=== PATIENT | male | born 1955 | race Caucasian/White ===

== ENCOUNTER 2020-01-02 15:23 | Emergency (ER) | payer SELFPAY ==
[2020-01-02 16:38] LABS: ANION GAP 17.2
--- NOTE | 2020-01-02 16:52 | EDM.PDOC ---
<Dorian Oliveira - Last Filed: 01/02/20 16:47> ED HPI GENERAL MEDICAL PROBLEM - General Chief Complaint: Respiratory Problem Stated Complaint: FEVER/ABNORMAL CHEST XRAY Time Seen by Provider: 01/02/20 16:30 Source of Information: Reports: Patient, RN, RN Notes Reviewed History Limitations: Reports: No Limitations - History of Present Illness INITIAL COMMENTS - FREE TEXT/NARRATIVE: Pt here from [facility]. Pt x-rays indicated pneumonia. Pt afebrile after tylenol being given in the clinic. Patient states he started feeling ill about 3 days ago with shortness of breath, productive cough and generalized weakness. He has had headaches but relieved with tylenol and ibuprofen. Has not had much of an appetite lately but still drinking plenty of fluids. He works 14 hour shifts and is on his feet while at work the whole shift. Pt with 156/104 bp. Pt denies pain at this time and admits to having chills/fever at home. Pt with 47 years smoking history. Onset: Gradual Duration: Day(s): (3 days) Location: Reports: Chest Severity: Moderate Improves with: Reports: None Worsens with: Reports: None Associated Symptoms: Reports: cough w sputum, Diaphoresis, Fever/Chills, Headaches, Loss of Appetite, Nausea/Vomiting, Shortness of Breath, Weakness. 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 [No Known Home Meds] 01/02/20 [History] Past Medical History HEENT History: Reports: None Cardiovascular History: Reports: None Respiratory History: Reports: None Gastrointestinal History: Reports: None Genitourinary History: Reports: None Musculoskeletal History: Reports: None Neurological History: Reports: None Psychiatric History: Reports: None Endocrine/Metabolic History: Reports: None Hematologic History: Reports: None Immunologic History: Reports: None Oncologic (Cancer) History: Reports: None Dermatologic History: Reports: None - Infectious Disease History Infectious Disease History: Reports: Chicken Pox - Past Surgical History Head Surgeries/Procedures: Reports: None HEENT Surgical History: Reports: None GI Surgical History: Reports: None Male Surgical History: Reports: None Endocrine Surgical History: Reports: None Neurological Surgical History: Reports: None Musculoskeletal Surgical History: Reports: None Oncologic Surgical History: Reports: None Social & Family History - Family History Family Medical History: Noncontributory - Tobacco Use Smoking Status *Q: Current Every Day Smoker Years of Tobacco use: 47 Packs/Tins Daily: 1 Used Tobacco, but Quit: No Second Hand Smoke Exposure: No - Caffeine Use Caffeine Use: Reports: Coffee - Recreational Drug Use Recreational Drug Use: No ED ROS GENERAL - Review of Systems Review Of Systems: See Below Constitutional: Reports: Fever, Weakness, Fatigue, Diaphoresis, Decreased Appetite HEENT: Reports: No Symptoms Respiratory: Reports: Shortness of Breath, Cough, Sputum Cardiovascular: Reports: No Symptoms Endocrine: Reports: No Symptoms GI/Abdominal: Reports: Decreased Appetite, Nausea. Denies: Constipation, Diarrhea, Vomiting : Reports: No Symptoms Musculoskeletal: Reports: No Symptoms Skin: Reports: No Symptoms Neurological: Reports: Headache, Weakness. Denies: Dizziness, Syncope Psychiatric: Reports: No Symptoms Hematologic/Lymphatic: Reports: No Symptoms Immunologic: Reports: No Symptoms ED EXAM, GENERAL - Physical Exam Exam: See Below Exam Limited By: No Limitations General Appearance: Alert, WD/WN, No Apparent Distress Head: Atraumatic, Normocephalic Neck: Normal Inspection, Supple, Non-Tender, Full Range of Motion. No: Carotid Bruit Respiratory/Chest: No Respiratory Distress, No Accessory Muscle Use, Chest Non- Tender, Decreased Breath Sounds, Crackles (bilateral) Cardiovascular: Normal Peripheral Pulses, Regular Rate, Rhythm, No Edema, No Gallop, No JVD, No Murmur, No Rub Peripheral Pulses: 2+: Carotid (L), Carotid (R) GI/Abdominal: Normal Bowel Sounds, Soft, Non-Tender, No Organomegaly, No Distention, No Abnormal Bruit, No Mass Extremities: Normal Inspection, Normal Range of Motion, Non-Tender, Normal Capillary Refill, No Pedal Edema Neurological: Alert, Oriented, CN II-XII Intact, Normal Cognition, Normal Gait, Normal Reflexes, No Motor/Sensory Deficits Psychiatric: Normal Affect, Normal Mood Skin Exam: Warm, Dry, Intact, Normal Color, No Rash Lymphatic: No Adenopathy Course - Vital Signs Last Recorded V/S: Last Vital Signs Temp 97.5 F 01/02/20 15:30 Pulse 87 01/02/20 15:30 Resp 18 01/02/20 15:30 BP 156/102 H 01/02/20 15:30 Pulse Ox 100 01/02/20 15:30 - Orders/Labs/Meds Labs: Laboratory Tests 01/02/20 01/02/20 01/02/20 Range/Units 16:09 16:09 16:09 WBC 9.8 (5.0-10.0) 10^3/uL RBC 3.94 L (4.6-6.2) 10^6/uL Hgb 13.0 L (14.0-18.0) g/dL Hct 36.9 L (40.0-54.0) % MCV 93.7 (80-100) fL MCH 33.0 (27.0-34.0) pg MCHC 35.2 H (33.0-35.0) g/dL Plt Count 246 (150-450) 10^3/uL Neut % (Auto) 85.6 H (42.2-75.2) % Lymph % (Auto) 7.5 L (20.5-50.1) % Elliott % (Auto) 6.7 (2-8) % Eos % (Auto) 0.0 L (1.0-3.0) % Baso % (Auto) 0.2 (0.0-1.0) % Sodium 123 L (135-145) mmol/L Potassium 5.2 H (3.6-5.0) mmol/L Chloride 90 L (101-111) mmol/L Carbon Dioxide 21.0 (21.0-31.0) mmol/L Anion Gap 17.2 BUN 21 H (7-18) mg/dL Creatinine 1.3 (0.6-1.3) mg/dL Est Cr Clr Drug Dosing 53.67 mL/min Estimated GFR (MDRD) 56 BUN/Creatinine Ratio 16.15 Glucose 102 (74-105) mg/dL Calcium 8.8 (8.4-10.2) mg/dl Total Bilirubin 1.5 H (0.2-1.0) mg/dL AST 119 H (10-42) IU/L ALT 142 H (10-60) IU/L Alkaline Phosphatase 85 (42-121) IU/L Troponin I (0.00-0.02) ng/ml B-Natriuretic Peptide 4080 H (0-100) pg/ml Total Protein 6.4 L (6.7-8.2) g/dl Albumin 3.8 (3.2-5.5) g/dl Globulin 2.6 Albumin/Globulin Ratio 1.46 Amylase (28-100) U/L Lipase (22-51) U/L Ethyl Alcohol < 5 mg/dL 01/02/20 01/02/20 Range/Units 16:09 16:09 WBC (5.0-10.0) 10^3/uL RBC (4.6-6.2) 10^6/uL Hgb (14.0-18.0) g/dL Hct (40.0-54.0) % MCV (80-100) fL MCH (27.0-34.0) pg MCHC (33.0-35.0) g/dL Plt Count (150-450) 10^3/uL Neut % (Auto) (42.2-75.2) % Lymph % (Auto) (20.5-50.1) % Elliott % (Auto) (2-8) % Eos % (Auto) (1.0-3.0) % Baso % (Auto) (0.0-1.0) % Sodium (135-145) mmol/L Potassium (3.6-5.0) mmol/L Chloride (101-111) mmol/L Carbon Dioxide (21.0-31.0) mmol/L Anion Gap BUN (7-18) mg/dL Creatinine (0.6-1.3) mg/dL Est Cr Clr Drug Dosing mL/min Estimated GFR (MDRD) BUN/Creatinine Ratio Glucose (74-105) mg/dL Calcium (8.4-10.2) mg/dl Total Bilirubin (0.2-1.0) mg/dL AST (10-42) IU/L ALT (10-60) IU/L Alkaline Phosphatase (42-121) IU/L Troponin I 0.03 H* (0.00-0.02) ng/ml B-Natriuretic Peptide (0-100) pg/ml Total Protein (6.7-8.2) g/dl Albumin (3.2-5.5) g/dl Globulin Albumin/Globulin Ratio Amylase 43 (28-100) U/L Lipase 31 (22-51) U/L Ethyl Alcohol mg/dL Meds: Medications Discontinued Medications Generic Name Dose Route Start Last Admin Trade Name Carolina PRN Reason Stop Dose Admin Furosemide 80 mg 01/02/20 17:14 01/02/20 17:26 Lasix IVPUSH 01/02/20 17:15 80 mg NOW ONE Administration Sodium Polystyrene Sulfonate 15 gm 01/02/20 17:37 01/02/20 19:24 Kayexalate PO 01/02/20 17:38 15 gm ONETIME ONE Administration Departure - Departure Disposition: DC/Tfer to [facility] 02 Clinical Impression: Hyperkalemia, Hyponatremia Congestive heart failure Qualifiers: Heart failure type: unspecified Heart failure chronicity: unspecified Qualified Code(s): I50.9 - Heart failure, unspecified - Discharge Information Referrals: PCP,Unobtain [Primary Care Provider] - Forms: ED Department Discharge Sepsis Event Note - Evaluation Sepsis Screening Result: No Definite Risk - Focused Exam Date Exam was Performed: 01/02/20 Time Exam was Performed: 16:47 <Vania Holly - Last Filed: 01/03/20 01:22> Course - Re-Assessments/Exams Free Text/Narrative Re-Assessment/Exam: 01/02/20 23:16 tx via [facility] to [facility]. Departure - Departure Time of Disposition: 19:30 Condition: Good - Discharge Information *PRESCRIPTION DRUG MONITORING PROGRAM REVIEWED*: No *COPY OF PRESCRIPTION DRUG MONITORING REPORT IN PATIENT ZAINAB: No Sepsis Event Note - Focused Exam Date Exam was Performed: 01/03/20 Time Exam was Performed: 01:22 <Rubina Garza - Last Filed: 01/07/20 00:10> Course - Re-Assessments/Exams Free Text/Narrative Re-Assessment/Exam: 01/07/20 00:10 I personally performed or re-performed the physical examination and medical decision making. I have verified all student documentation or findings, including history, physical exam and/or medical decision making.
[2020-01-02] MEDS ORDERED: Furosemide 40 MG/4 ML VIAL IVPUSH ONE (17:14)
[2020-01-02] MEDS ORDERED: Sodium Polystyrene Sulfonate 15 GM/60 ML Susp 60 ML Bot PO ONE (17:37)
== END 2020-01-02 19:25 ==
LOC: DL.ED 15:23
DX: E87.5 Hyperkalemia (principal); E87.1 Hypo-osmolality and hyponatremia; I50.9 Heart failure, unspecified; F17.210 Nicotine dependence, cigarettes, uncomplicated
CPT/HCPCS: 36415; 80053; 80307; 82150; 83690; 83880; 84484; 85025; 96374; 99285; A9270; J1940

== ENCOUNTER 2020-10-18 17:06 | Inpatient (IN) | payer OTHER ==
[2020-10-18] MEDS ORDERED: Ondansetron 4 MG Tab.DIS PO PRN (17:34)
[2020-10-18] MEDS ORDERED: Acetaminophen/oxyCODONE 325-5 MG Tab PO PRN (17:34)
[2020-10-18] MEDS ORDERED: Acetaminophen 325 MG Tab PO PRN (17:34)
[2020-10-18] MEDS ORDERED: Docusate Sodium 100 MG Cap PO PRN (17:34)
[2020-10-18] MEDS ORDERED: cefTRIAXone 1 GM in Sodium Chloride 0.9% 50 ML IV SCH (18:00)
--- NOTE | 2020-10-18 19:20 | HP ---
CHIEF COMPLAINT: Shortness of breath and pedal edema. HISTORY OF PRESENT ILLNESS: The patient is a 65-year-old gentleman who was admitted from [facility] because the patient for the last 3 days has been having increasing pedal edema and shortness of breath. The patient was seen at the clinic, 10/08, because of sore throat and shortness of breath. The patient was diagnosed with pneumonia and he was treated with Augmentin and Zithromax as an outpatient. The patient mentioned he got a little bit better, but after Thanksgiving, he started having this shortness of breath with increasing pedal edema. He denies though any chest pain, palpitation, fever, chills, abdominal pain, nausea, vomiting, nor any other complaints. He had some lab workup at the clinic, and his chest x-ray showed CHF and pneumonia and BNP was 2840. Because of this, he was then admitted for further evaluation and management. PAST MEDICAL HISTORY: Remarkable for congestive heart failure and systolic dysfunction with ejection fraction of less than 25% from an echocardiogram done last 12/2019. He has history of hypertension, history of cerebral aneurysm, status post coil. FAMILY HISTORY: Noncontributory. SOCIAL HISTORY: The patient is . Smokes about a pack of cigarettes a day and nonalcohol drinker. HOME MEDICATION: Baby aspirin a day. REVIEW OF SYSTEMS: As in HPI. The rest of the review of systems is negative. PHYSICAL EXAMINATION: General: The patient is ambulatory. He is alert and oriented, not in any acute distress. Vital Signs: Blood pressure is 130/74, pulse of 79, respirations 16, temperature of 98, saturation is 97% on room air. SHEENT: Normocephalic. There are pink palpebral conjunctivae. Sclerae anicteric. There is mild hepatojugular reflux. Heart: Regular rate and rhythm. Normal S1 and S2. No gallops. No rubs. Lungs: Have diminished breath sounds in both bases with faint crackles, but no wheezing. Abdomen: Soft, nontender. Bowel sounds positive. Extremities: Remarkable for 1 to 2+ bilateral pedal edema. No calf tenderness. LABORATORY WORKUP: Done at the [facility]. CBC: WBC is 9.8, hemoglobin is 12.9, hematocrit is 37, platelets are 305. Comp panel remarkable for BUN of 25, creatinine of 1.5, AST of 53, ALT of 121. Troponin is less than 0.02. BNP is 2840. Chest x-ray is remarkable for congestive heart failure as well as pneumonia. ADMITTING DIAGNOSES: 1. Congestive heart failure exacerbation with systolic dysfunction. 2. Pneumonia. 3. Tobacco habituation. TREATMENT PLAN: The patient is going to be admitted to telemetry floor acute care. He will be empirically started on IV Lasix and we will also put him on losartan and Aldactone because of his history of congestive heart failure. We will also continue with baby aspirin a day, and I am going to recheck a troponin in a.m., and we will also get a D-dimer on the patient. The rest of the management as necessary, and the patient is a full code. [facility] /[id number]
[2020-10-18] MEDS: Aspirin 81 MG Tab.Chew PO SCH (20:20)
[2020-10-18] MEDS: Albuterol 0.083% 2.5 MG/3 ML Neb Soln NEB SCH (20:20)
[2020-10-18] MEDS: Furosemide 40 MG/4 ML VIAL IVPUSH SCH (20:32)
[2020-10-18] MEDS: Azithromycin 500 MG in Sodium Chloride 0.9% 250 ML IV SCH (20:36)
[2020-10-19 06:42] LABS: ANION GAP 11.2 mEq/L (7-13)
[2020-10-19] MEDS: Albuterol 0.083% 2.5 MG/3 ML Neb Soln NEB SCH ×2 (07:25→12:06)
[2020-10-19] MEDS: Losartan 50 MG Tab PO SCH (09:13)
[2020-10-19] MEDS: Spironolactone 25 MG Tab PO SCH (09:13)
[2020-10-19] MEDS: Furosemide 40 MG/4 ML VIAL IVPUSH SCH ×2 (09:15→14:32)
[2020-10-19] MEDS: Nicotine 21 MG/24 Hr Patch TRDERM SCH (09:15)
[2020-10-19] MEDS: Enoxaparin 30 MG/0.3 ML Syringe SUBCUT SCH (09:16)
--- NOTE | 2020-10-19 11:24 | PN ---
DATE: 10/19/2020 SUBJECTIVE: The patient has diuresed well with the IV Lasix and this morning, he is feeling much better and the pedal edema has improved. The patient denies any chest pain, fever, chills, abdominal pain, nor any other complaints. LABORATORY DATA: Lab workup this morning, CBC: WBC 7.3, hemoglobin is 11.9, hematocrit is 33.5, platelet is 255. D-dimer is 401. Comp panel: Sodium is 135, creatinine is 1.38, BUN is 21, glucose is 101. The rest of the panel unremarkable and troponin is 0.025 and SARS-COVID is negative. OBJECTIVE: Vital Signs: Blood pressure is 120/75, pulse 62, respirations 16, temperature of 98.2, saturation is 100% on room air. Heart: Regular rate and rhythm. Normal S1 and S2. No gallops. No rubs. Lungs: Diminished breath sounds on both bases, but no significant crackles, no wheezing. Abdomen: Soft, nontender. Bowel sounds positive. Extremities: Negative for any calf tenderness. There is trace bilateral pedal edema. PLAN: We will continue with his present management and continue with IV Lasix as well as the IV antibiotics. If the patient continues to do well, anticipate discharge in a day or two. [facility] /[id number]
[2020-10-19] MEDS ORDERED: cefTRIAXone 1 GM in Sodium Chloride 0.9% 50 ML IV SCH (17:00)
[2020-10-19] MEDS: Azithromycin 500 MG in Sodium Chloride 0.9% 250 ML IV SCH (17:13)
[2020-10-19] MEDS: Aspirin 81 MG Tab.Chew PO SCH (21:18)
[2020-10-19] MEDS: Sodium Chloride 0.9% 10 ML Syringe FLUSH PRN (21:35)
[2020-10-20 06:55] LABS: ANION GAP 14.5 mEq/L (7-13)
[2020-10-20] MEDS: Losartan 50 MG Tab PO SCH (09:14)
[2020-10-20] MEDS: Nicotine 21 MG/24 Hr Patch TRDERM SCH (09:14)
[2020-10-20] MEDS: Enoxaparin 30 MG/0.3 ML Syringe SUBCUT SCH (09:14)
[2020-10-20] MEDS: Furosemide 40 MG/4 ML VIAL IVPUSH SCH (09:15)
[2020-10-20] MEDS: Spironolactone 25 MG Tab PO SCH (09:15)
[2020-10-20] MEDS: Sodium Chloride 0.9% 10 ML Syringe FLUSH PRN (09:15)
[2020-10-20] MEDS ORDERED: Amoxicillin/Clavulanate K 875-125 MG Tab PO SCH (09:45)
--- NOTE | 2020-10-20 10:23 | PCM.DCSUM1 ---
Discharge Summary - Hospital Course Free Text/Narrative:: Patient is a 65-year-old man with medical history significant for chronic systolic and diastolic heart failure with EF less than 25% and with grade 3 diastolic dysfunction with severe global hypokinesis of the left ventricle, moderately dilated right ventricle with moderately reduced right ventricular systolic function on echocardiogram from December 31, 2019, echocardiogram also showing moderate mitral regurgitation, severely dilated left atrium, moderate valvular aortic stenosis of bicuspid aortic valve. Patient also is known to have tobacco dependence. Patient was admitted for acute on chronic combined systolic and diastolic heart failure and was placed on IV diuresis. He was started on losartan and Aldactone. He was also started on azithromycin and Rocephin for community-acquired pneumonia. Patient diuresed very well and has been ambulating in the hallways with no acute issues. Was brought to my attention the patient has been having multiple PVCs and arrhythmias on telemetry. EKG was obtained today which showed multiple PVCs with left ventricular hypertrophy. Also showed inverted T waves in V1 to V4. Patient was offered referral to contract attorney. However, patient declined. He was noted to have a sodium of 131 at time of discharge. He is being discharged to follow-up with PCP. He is to obtain basic metabolic panel and follow-up with PCP who would instruct him on how to start Lasix. He is strongly encouraged to follow up with contract attorney for further work-up and management of his systolic dysfunction. PCP is to consider initiating beta-blockers if patient remains euvolemic at time of appointment and if blood pressures can tolerate. Ultimately to be to discontinue Aldactone and start on beta-vinny if blood pressures are low. Diagnosis: Stroke: No - Discharge Data Discharge Date: 10/20/20 Discharge Disposition: Home, Self-Care 01 Condition: Fair - Referral to Home Health Primary Care Physician: Alpa Jara NP - Discharge Plan Prescriptions/Med Rec: Spironolactone [Aldactone] 25 mg PO DAILY #30 tablet Amoxicillin/Clavulanate K [Augmentin 875-125 MG] 1 tab PO Q12HR #6 tablet Losartan [Cozaar] 50 mg PO DAILY #30 tablet Nicotine [Habitrol] 21 mg TRDERM DAILY #42 patch Furosemide [Lasix] 20 mg PO DAILY #14 tablet Home Medications: Home Meds Aspirin 81 mg PO DAILY 10/18/20 [History] Amoxicillin/Clavulanate K [Augmentin 875-125 MG] 1 tab PO Q12HR #6 tablet 10/20/20 [Rx] Furosemide [Lasix] 20 mg PO DAILY #14 tablet 10/20/20 [Rx] Losartan [Cozaar] 50 mg PO DAILY #30 tablet 10/20/20 [Rx] Nicotine [Habitrol] 21 mg TRDERM DAILY #42 patch 10/20/20 [Rx] Spironolactone [Aldactone] 25 mg PO DAILY #30 tablet 10/20/20 [Rx] Referrals: Alpa Jara, [employer] [Primary Care Provider] - - Discharge Summary/Plan Comment DC Time >30 min.: Yes - General Info Date of Service: 10/20/20 Admission Dx/Problem (Free Text: acute on chronic combined diastolic and systolic heart failure Subjective Update: No acute events overnight. Patient ambulating well in the hallway without oxygen. EKG obtained which showed inverted T waves in V1 to V4. Patient offered referral to contract attorney but strongly declined. He denies chest pains, shortness of breath, fevers, chills, nausea, vomiting, diarrhea, constipation, dysuria, hematuria, or any new symptoms. - Patient Data Vitals - Most Recent: Last Vital Signs Temp 97.3 F 10/20/20 07:42 Pulse 116 H 10/20/20 07:42 Resp 20 10/20/20 07:42 BP 129/90 10/20/20 09:14 Pulse Ox 100 10/20/20 07:42 Weight - Most Recent: 127 lb 9.6 oz I&O - Last 24 hours: Intake & Output 10/19/20 10/20/20 10/20/20 22:59 06:59 14:59 Intake Total 500 1150 200 Balance 500 1150 200 Lab Results - Last 24 hrs: Laboratory Results - last 24 hr 10/20/20 Range/Units 06:00 Sodium 131 L (136-145) mmol/L Potassium 4.5 (3.5-5.1) mmol/L Chloride 95 L (98-107) mmol/L Carbon Dioxide 26 (21-32) mmol/L Anion Gap 14.5 H (7-13) mEq/L BUN 29 H (7-18) mg/dL Creatinine 1.45 H (0.70-1.30) mg/dL Est Cr Clr Drug Dosing 41.58 mL/min Estimated GFR (MDRD) 49 Glucose 123 H (74-99) mg/dL Calcium 8.6 (8.5-10.1) mg/dL CESAR Results - Last 24 hrs: Microbiology 10/18/20 20:44 Aerobic Blood Culture - Preliminary Blood - Arm, Left NO GROWTH AFTER 1 DAY Anaerobic Blood Culture - Preliminary NO GROWTH AFTER 1 DAY Med Orders - Current: Current Medications Acetaminophen (Tylenol) 650 mg PO Q4H PRN PRN Reason: Pain (Mild 1-3)/fever Amoxicillin/Clavulanate Potassium (Augmentin 875 Mg/125 Mg) 1 tab PO Q12HR [facility] Last Admin: 10/20/20 09:45 Dose: 1 tab Documented by: Aspirin (Aspirin) 81 mg PO BEDTIME [facility] Last Admin: 10/19/20 21:18 Dose: 81 mg Documented by: Docusate Sodium (Colace) 100 mg PO BID PRN PRN Reason: Constipation Enoxaparin Sodium (Lovenox) 30 mg SUBCUT DAILY [facility] Last Admin: 10/20/20 09:14 Dose: 30 mg Documented by: Furosemide (Lasix) 40 mg IVPUSH BIDDIURETIC [facility] Last Admin: 10/20/20 09:15 Dose: 40 mg Documented by: Losartan Potassium (Cozaar) 50 mg PO DAILY [facility] Last Admin: 10/20/20 09:14 Dose: 50 mg Documented by: Miscellaneous Information (Remove Patch) 1 ea TRDERM BEDTIME [facility] Last Admin: 10/19/20 21:18 Dose: Not Given Documented by: Nicotine (Habitrol) 21 mg TRDERM DAILY [facility] Last Admin: 10/20/20 09:14 Dose: Not Given Documented by: Ondansetron HCl (Zofran Odt) 4 mg PO Q4H PRN PRN Reason: nausea, able to take PO Oxycodone/Acetaminophen (Percocet 325-5 Mg) 1 tab PO Q4H PRN PRN Reason: Pain (moderate 4-6) Sodium Chloride (Saline Flush) 10 ml FLUSH ASDIRECTED PRN PRN Reason: Keep Vein Open Last Admin: 10/20/20 09:15 Dose: 10 ml Documented by: Spironolactone (Aldactone) 25 mg PO DAILY [facility] Last Admin: 12/02/20 09:15 Dose: 25 mg Documented by: Discontinued Medications Albuterol (Proventil Neb Soln) 2.5 mg NEB QIDRT [facility] Last Admin: 10/19/20 12:06 Dose: Not Given Documented by: Furosemide (Lasix) 40 mg IVPUSH BID [facility] Last Admin: 10/19/20 09:15 Dose: 40 mg Documented by: Ceftriaxone Sodium 1 gm/ (Sodium Chloride) 50 mls @ 100 mls/hr IV Q24H [facility] Last Admin: 10/18/20 20:24 Dose: 100 mls/hr Documented by: Azithromycin 500 mg/ Sodium (Chloride) 250 mls @ 250 mls/hr IV Q24H [facility] Last Infusion: 10/19/20 19:03 Dose: Infused Documented by: Ceftriaxone Sodium 1 gm/ (Sodium Chloride) 50 mls @ 100 mls/hr IV Q24H [facility] Last Admin: 10/19/20 17:12 Dose: 100 mls/hr Documented by: - Exam General: Reports: Alert, Oriented, Cooperative, No Acute Distress HEENT: Reports: Pupils Equal, Pupils Reactive, Mucous Membr. Moist/Cool Neck: Reports: Supple Lungs: Reports: Clear to Auscultation, Normal Respiratory Effort Cardiovascular: Reports: Regular Rate, Regular Rhythm, Murmurs (Systolic and diastolic murmurs. ) GI/Abdominal Exam: Normal Bowel Sounds, Soft, Non-Tender, No Distention Extremities: Normal Inspection, Non-Tender, No Pedal Edema Skin: Reports: Warm, Dry, Intact Psy/Mental Status: Reports: Alert, Normal Affect, Normal Mood
== END 2020-10-20 10:45 | disposition home or self-care (01) | DRG 291 ==
LOC: DL.MS 17:06
PROVIDERS: ADMIT Internal Medicine; ATTEND Internal Medicine
DX: I11.0 Hypertensive heart disease with heart failure (principal); J18.9 Pneumonia, unspecified organism; I50.43 Acute on chronic combined systolic (congestive) and diastolic (congestive) heart failure; F17.210 Nicotine dependence, cigarettes, uncomplicated; Z20.828 Contact with and (suspected) exposure to other viral communicable diseases; Z28.82 Immunization not carried out because of caregiver refusal; Z79.82 Long term (current) use of aspirin; Z79.899 Other long term (current) drug therapy
CPT/HCPCS: 36415; 80048; 84484; 85025; 85379; 87040; 93005; 94640; A9270-GY; J0456; J0696; J1650; J1940; J7050; J7613-GY; U0002

== ENCOUNTER 2020-11-22 13:04 | Inpatient (IN) | payer MEDICARE, OTHER ==
[2020-11-22] MEDS ORDERED: Sodium Chloride 0.9% 10 ML Syringe FLUSH PRN (13:28)
--- NOTE | 2020-11-22 13:28 | EDM.PDOC ---
ED HPI GENERAL MEDICAL PROBLEM - General Chief Complaint: Respiratory Problem Stated Complaint: VOMITING FOR FEW WEEKS, PRESCRIPTION RAN OUT Time Seen by Provider: 11/22/20 13:28 Source of Information: Reports: Patient, Old Records, RN, RN Notes Reviewed History Limitations: Reports: No Limitations - History of Present Illness INITIAL COMMENTS - FREE TEXT/NARRATIVE: Pt presents to ER by POV with c/o progressively worsening shortness of breath, productive cough, and feels like he did when he had pneumonia. Denies fever, edema, or chest pain. Hx of CHF. Pt continues to smoke cigarettes. Onset: Gradual Duration: Getting Worse Location: Reports: Chest Severity: Severe Improves with: Reports: None Worsens with: Reports: None Associated Symptoms: Reports: No Other Symptoms - Related Data Allergies Allergy/AdvReac Type Severity Reaction Status Date / Time No Known Allergies Allergy Verified 11/22/20 13:55 Home Meds: Home Meds Aspirin 81 mg PO DAILY 10/18/20 [History] Furosemide [Lasix] 20 mg PO DAILY #14 tablet 10/20/20 [Rx] Losartan [Cozaar] 50 mg PO DAILY #30 tablet 10/20/20 [Rx] Nicotine [Habitrol] 21 mg TRDERM DAILY #42 patch 10/20/20 [Rx] Spironolactone [Aldactone] 25 mg PO DAILY #30 tablet 10/20/20 [Rx] Past Medical History HEENT History: Reports: None Cardiovascular History: Reports: Heart Failure, [place] Respiratory History: Reports: None Gastrointestinal History: Reports: None Genitourinary History: Reports: None Musculoskeletal History: Reports: Fracture Other Musculoskeletal History: "Left arm fracture" Neurological History: Reports: Cerebral Aneurysms Psychiatric History: Reports: None Endocrine/Metabolic History: Reports: None Hematologic History: Reports: None Immunologic History: Reports: None Oncologic (Cancer) History: Reports: None Dermatologic History: Reports: None - Infectious Disease History Infectious Disease History: Reports: Chicken Pox - Past Surgical History Head Surgeries/Procedures: Reports: None HEENT Surgical History: Reports: Tonsillectomy Cardiovascular Surgical History: Reports: None GI Surgical History: Reports: None Male Surgical History: Reports: None Endocrine Surgical History: Reports: None Neurological Surgical History: Reports: Other (See Below) Other Neurological Surgeries/Procedures: 2008 aneurysm repair Oncologic Surgical History: Reports: None Social & Family History - Family History Family Medical History: No Pertinent Family History - Tobacco Use Tobacco Use Status *Q: Current Every Day Tobacco User Tobacco Use Within Last Twelve Months: Cigarettes - Caffeine Use Caffeine Use: Reports: Coffee - Living Situation & Occupation Occupation: Employed ED ROS GENERAL - Review of Systems Review Of Systems: Comprehensive ROS is negative, except as noted in HPI. ED EXAM, GENERAL - Physical Exam Exam: See Below Exam Limited By: No Limitations General Appearance: Alert, Other (Thin chronically ill appearing male with increased work of breathing) Eye Exam: Bilateral Eye: Normal Inspection Nose: Normal Inspection, Normal Mucosa, No Blood Throat/Mouth: Normal Inspection, Normal Lips, Normal Oropharynx, Normal Voice, No Airway Compromise Head: Atraumatic, Normocephalic Neck: Normal Inspection, Supple, Non-Tender, Full Range of Motion Respiratory/Chest: No Respiratory Distress, No Accessory Muscle Use, Decreased Breath Sounds, Crackles, Rales. No: Rhonchi, Wheezing, Stridor Cardiovascular: Regular Rate, Rhythm, No Edema, Tachycardia, Extra Beats GI/Abdominal: Normal Bowel Sounds, Soft, Non-Tender Back Exam: Normal Inspection Extremities: Normal Inspection, Normal Range of Motion, Non-Tender, No Pedal Edema, Normal Capillary Refill. No: Joint Swelling, Veronica's Sign Neurological: Alert, Oriented, CN II-XII Intact, Normal Cognition, No Motor/Sensory Deficits Psychiatric: Anxious Skin Exam: Warm, Dry, Intact #1 Interpretation EKG Date: 11/22/20 Time: 13:56 Rhythm: Other (sinus tach) Rate (Beats/Min): 121 Llewellyn: LAD-Left Llewellyn Deviation P-Wave: Present QRS: Normal (with PVCs) ST-T: Depressed (in lateral leads) QT: Normal Comparison: Change From Previous EKG (10/20/20 EKG SR w/out ischemic changes) Course - Vital Signs Last Recorded V/S: Last Vital Signs Temp 97.2 F 11/22/20 13:29 Pulse 123 H 11/22/20 13:29 Resp 20 11/22/20 13:29 BP 156/94 H 11/22/20 13:29 Pulse Ox 88 L 11/22/20 13:29 - Orders/Labs/Meds Orders: Active Orders 24 hr Category Date Time Status EKG 12 Lead [EKG Documentation Completion] [RC] STAT Care 11/22/20 13:29 Active Peripheral IV Care [RC] . DIRECTED Care 11/22/20 13:29 Active RT Aerosol Therapy [RC] ASDIRECTED Care 11/22/20 13:32 Active CULTURE BLOOD [BC] Stat Lab 11/22/20 13:40 Received CULTURE BLOOD [BC] Stat Lab 11/22/20 13:45 Received Levofloxacin/Dextrose 5%-Water [Levaquin in D5W 750 MG/ Med 11/22/20 14:21 Active 150 ML] 750 mg Premix Bag 1 bag IV ONETIME Sodium Chloride 0.9% [Saline Flush] Med 11/22/20 13:28 Active 10 ml FLUSH ASDIRECTED PRN Blood Culture x2 Reflex Set [OM.PC] Stat Oth 11/22/20 13:28 Ordered Isolation [COMM] Routine Oth 11/22/20 13:33 Active Peripheral IV Insertion Adult [OM.PC] Stat Oth 11/22/20 13:29 Ordered Medication Orders Levofloxacin/Dextrose 750 mg/ (Premix) 150 mls @ 100 mls/hr IV ONETIME ONE Stop: 11/22/20 15:50 Last Admin: 11/22/20 14:30 Dose: 100 mls/hr Documented by: ALOK Sodium Chloride (Saline Flush) 10 ml FLUSH ASDIRECTED PRN PRN Reason: Keep Vein Open Last Admin: 11/22/20 13:59 Dose: 10 ml Documented by: ALOK Labs: Laboratory Tests 11/22/20 11/22/20 11/22/20 Range/Units 13:40 13:40 13:40 WBC 17.2 H (5.0-10.0) 10^3/uL RBC 3.93 L (4.6-6.2) 10^6/uL Hgb 13.3 L (14.0-18.0) g/dL Hct 38.2 L (40.0-54.0) % MCV 97.2 (80-100) fL MCH 33.8 (27.0-34.0) pg MCHC 34.8 (33.0-35.0) g/dL Plt Count 259 (150-450) 10^3/uL Neut % (Auto) 87.6 H (42.2-75.2) % Lymph % (Auto) 7.7 L (20.5-50.1) % [place] % (Auto) 4.0 (2-8) % Eos % (Auto) 0.5 L (1.0-3.0) % Baso % (Auto) 0.2 (0.0-1.0) % Sodium 136 (136-145) mmol/L Potassium 4.1 (3.5-5.1) mmol/L Chloride 98 (98-107) mmol/L Carbon Dioxide 25 (21-32) mmol/L Anion Gap 17.1 H (7-13) mEq/L BUN 17 (7-18) mg/dL Creatinine 1.60 H (0.70-1.30) mg/dL Est Cr Clr Drug Dosing 41.05 mL/min Estimated GFR (MDRD) 44 BUN/Creatinine Ratio 10.6 (No establ ref range) Glucose 193 H (74-99) mg/dL Lactic Acid 3.1 H* (0.4-2.0) mmol/L Calcium 9.2 (8.5-10.1) mg/dL Total Bilirubin 0.6 (0.2-1.0) mg/dL AST 32 (15-37) U/L ALT 42 (16-63) U/L Alkaline Phosphatase 95 (46-116) U/L Troponin I 0.020 (0.000-0.056) ng/mL B-Natriuretic Peptide 1450 H (0-100) pg/ml Total Protein 7.4 (6.4-8.2) g/dL Albumin 4.0 (3.4-5.0) g/dL Globulin 3.4 Albumin/Globulin Ratio 1.2 SARS-CoV-2 RNA (ANA LUISA) (NEGATIVE) 11/22/20 Range/Units 13:40 WBC (5.0-10.0) 10^3/uL RBC (4.6-6.2) 10^6/uL Hgb (14.0-18.0) g/dL Hct (40.0-54.0) % MCV (80-100) fL MCH (27.0-34.0) pg MCHC (33.0-35.0) g/dL Plt Count (150-450) 10^3/uL Neut % (Auto) (42.2-75.2) % Lymph % (Auto) (20.5-50.1) % [place] % (Auto) (2-8) % Eos % (Auto) (1.0-3.0) % Baso % (Auto) (0.0-1.0) % Sodium (136-145) mmol/L Potassium (3.5-5.1) mmol/L Chloride (98-107) mmol/L Carbon Dioxide (21-32) mmol/L Anion Gap (7-13) mEq/L BUN (7-18) mg/dL Creatinine (0.70-1.30) mg/dL Est Cr Clr Drug Dosing mL/min Estimated GFR (MDRD) BUN/Creatinine Ratio (No establ ref range) Glucose (74-99) mg/dL Lactic Acid (0.4-2.0) mmol/L Calcium (8.5-10.1) mg/dL Total Bilirubin (0.2-1.0) mg/dL AST (15-37) U/L ALT (16-63) U/L Alkaline Phosphatase (46-116) U/L Troponin I (0.000-0.056) ng/mL B-Natriuretic Peptide (0-100) pg/ml Total Protein (6.4-8.2) g/dL Albumin (3.4-5.0) g/dL Globulin Albumin/Globulin Ratio SARS-CoV-2 RNA (ANA LUISA) Negative (NEGATIVE) Meds: Medications Generic Name Dose Route Start Last Admin Trade Name Freq PRN Reason Stop Dose Admin Levofloxacin/Dextrose 750 mg/ 150 mls @ 100 mls/hr 11/22/20 14:21 11/22/20 14:30 Premix IV 11/22/20 15:50 100 mls/hr ONETIME ONE Administration Sodium Chloride 10 ml 11/22/20 13:28 11/22/20 13:59 Saline Flush FLUSH 10 ml ASDIRECTED PRN Administration Keep Vein Open Discontinued Medications Generic Name Dose Route Start Last Admin Trade Name Freq PRN Reason Stop Dose Admin Albuterol/Ipratropium 3 ml 11/22/20 13:32 11/22/20 14:01 Duoneb 3.0-0.5 Mg/3 Ml NEB 11/22/20 13:33 3 ml ONETIME ONE Administration Methylprednisolone Sodium Succinate 125 mg 11/22/20 13:32 11/22/20 14:01 Solu-Medrol IVPUSH 11/22/20 13:33 125 mg ONETIME ONE Administration Ondansetron HCl 4 mg 11/22/20 13:32 11/22/20 14:01 Zofran IV 11/22/20 13:33 4 mg ONETIME ONE Administration - Radiology Interpretation Free Text/Narrative:: XR Chest: RML pneumonia, CHF, see Rad. report. Departure - Departure Time of Disposition: 14:43 (admitted to Dr. Mahmood) Disposition: Admitted As Inpatient 66 Condition: Fair Clinical Impression: COPD (chronic obstructive pulmonary disease) with chronic bronchitis, Tobacco dependence due to cigarettes Pneumonia Qualifiers: Pneumonia type: due to unspecified organism Laterality: right Lung location: middle lobe of lung Qualified Code(s): J18.9 - Pneumonia, unspecified organism Congestive heart failure Qualifiers: Heart failure type: unspecified Heart failure chronicity: unspecified Qualified Code(s): I50.9 - Heart failure, unspecified - Discharge Information *PRESCRIPTION DRUG MONITORING PROGRAM REVIEWED*: Not Applicable *COPY OF PRESCRIPTION DRUG MONITORING REPORT IN PATIENT ZAINAB: Not Applicable Forms: ED Department Discharge Sepsis Event Note (ED) - Focused Exam Vital Signs: Vital Signs Temp Pulse Resp BP Pulse Ox 11/22/20 13:29 97.2 F 123 H 20 156/94 H 88 L - My Orders Last 24 Hours: My Active Orders 11/22/20 13:28 Sodium Chloride 0.9% [Saline Flush] 10 ml FLUSH ASDIRECTED PRN Blood Culture x2 Reflex Set [OM.PC] Stat 11/22/20 13:29 EKG 12 Lead [EKG Documentation Completion] [RC] STAT Peripheral IV Care [RC] . DIRECTED Peripheral IV Insertion Adult [OM.PC] Stat 11/22/20 13:32 RT Aerosol Therapy [RC] ASDIRECTED 11/22/20 13:33 Isolation [COMM] Routine 11/22/20 13:40 CULTURE BLOOD [BC] Stat 11/22/20 13:45 CULTURE BLOOD [BC] Stat 11/22/20 14:21 Levofloxacin/Dextrose 5%-Water [Levaquin in D5W 750 MG/150 ML] 750 mg Premix Bag 1 bag IV ONETIME - Assessment/Plan Last 24 Hours: My Active Orders 11/22/20 13:28 Sodium Chloride 0.9% [Saline Flush] 10 ml FLUSH ASDIRECTED PRN Blood Culture x2 Reflex Set [OM.PC] Stat 11/22/20 13:29 EKG 12 Lead [EKG Documentation Completion] [RC] STAT Peripheral IV Care [RC] . DIRECTED Peripheral IV Insertion Adult [OM.PC] Stat 11/22/20 13:32 RT Aerosol Therapy [RC] ASDIRECTED 11/22/20 13:33 Isolation [COMM] Routine 11/22/20 13:40 CULTURE BLOOD [BC] Stat 11/22/20 13:45 CULTURE BLOOD [BC] Stat 11/22/20 14:21 Levofloxacin/Dextrose 5%-Water [Levaquin in D5W 750 MG/150 ML] 750 mg Premix Bag 1 bag IV ONETIME
[2020-11-22] MEDS ORDERED: methylPREDNISolone Sodium Succinate 125 MG/2 ML SDV IVPUSH ONE (13:32)
[2020-11-22] MEDS ORDERED: Ondansetron 4 MG/2 ML SDV IV ONE (13:32)
[2020-11-22] MEDS ORDERED: Albuterol/Ipratropium 3.0-0.5 MG/3 ML Neb Soln NEB ONE (13:32)
--- NOTE | 2020-11-22 14:17 | CR ---
EXAMINATION: Chest 2V SEX: Male AGE: 65 years CLINICAL HISTORY: 65-year-old male with heart disease (CHF), COPD, dyspnea and cough. No comparison films immediately available. Interpretation: Abnormal. 1. Borderline cardiomegaly and bilateral pulmonary vascular congestion with some cephalization vascular flow and although no apparent alveolar edema there is suggestion of small dependent right pleural effusion. 2. Fluid in the major fissure on the right. 3. Asymmetric consolidation right middle and anterior segment right lower lobes. 4. No lung mass, other focal lobar consolidation (infiltrate/atelectasis) or peripheral "groundglass" interstitial lung densities. 5. Normal midline tracheal bronchial airway. No pneumothorax or pneumomediastinum. Discussion: Radiographic appearance most consistent with CHF. Weight gain? JVD? EKG? Underlying right middle lobe pneumonia remains a differential consideration. Clinical? Doubt Covid vasculitis slice pneumonitis.
[2020-11-22 14:18] LABS: ANION GAP 17.1 mEq/L (7-13)
[2020-11-22] MEDS ORDERED: Levofloxacin/Dextrose 5%-Water 750 MG in Premix Bag 1 BAG IV ONE (14:21)
[2020-11-22] MEDS ORDERED: oxyCODONE 5 MG Tab PO PRN (15:09)
[2020-11-22] MEDS ORDERED: Acetaminophen 325 MG Tab PO PRN (15:09)
[2020-11-22] MEDS ORDERED: Ondansetron 4 MG Tab.DIS PO PRN (15:09)
[2020-11-22] MEDS ORDERED: Docusate Sodium 100 MG Cap PO PRN (15:09)
[2020-11-22] MEDS: Furosemide 40 MG/4 ML VIAL IVPUSH SCH (17:19)
[2020-11-22] MEDS: Spironolactone 25 MG Tab PO SCH (17:21)
[2020-11-22] MEDS: Losartan 50 MG Tab PO SCH (17:21)
[2020-11-22] MEDS: Albuterol/Ipratropium 3.0-0.5 MG/3 ML Neb Soln NEB SCH (18:26)
[2020-11-22] MEDS: Aspirin 81 MG Tab.Chew PO SCH (18:26)
--- NOTE | 2020-11-22 18:42 | HP ---
CHIEF COMPLAINT: Shortness of breath. HISTORY OF PRESENT ILLNESS: The patient is a 65-year-old male with past medical history of systolic congestive heart failure, coronary artery disease, and history of NE, who was admitted to the emergency room this morning because the patient started having some shortness of breath with productive cough with phlegm that started this morning. He was seen in the emergency room. Workup showed elevated BNP and chest x-ray showed right middle lobe pneumonia and CHF exacerbation. Because of this, he was then admitted for further evaluation and management. PAST MEDICAL HISTORY: Remarkable for chronic systolic heart failure with ejection fraction of less than 25 with severe global hypokinesis of the left ventricle. He has history of coronary artery disease and history of NE. He has tobacco habituation. He has been seen by combination technician in the past, but has been refusing to see a combination technician because of the cost. FAMILY HISTORY: Noncontributory. SOCIAL HISTORY: The patient is and smokes about a pack of cigarette a day. Nonalcohol drinker. REVIEW OF SYSTEMS: The rest of the review of systems is negative. The patient denies any fever or chills. Denies any chest pain, melena, hematochezia, or any bleeding tendencies. HOME MEDICATIONS: Spironolactone, losartan, Lasix, and aspirin. ALLERGIES: No known drug allergies. PHYSICAL EXAMINATION: General: The patient is alert and oriented, not in any acute respiratory distress. Vital Signs: Blood pressure is 156/94, pulse of 123, respiration of 20, temperature of 97.2, and saturation is 88% on room air. SHEENT: Normocephalic. There are pink palpebral conjunctivae. Sclerae anicteric. There is mild hepatojugular reflux. Heart: Regular. Slightly tachycardic. Lungs: Have diminished breath sounds on both bases with faint crackles and more on the right lung field. Abdomen: Soft and nontender. Bowel sounds positive. Extremities: Negative for any pedal edema. No calf tenderness. LABORATORY DATA: CBC: WBC is 17.2, hemoglobin is 13.3, hematocrit is 38.2, and platelet is 259. Comp panel: Creatinine is 1.6, glucose is 193. The rest of the panel unremarkable. BNP is 1450. Lactic acid is 3.1. COVID is negative. Chest x-ray is remarkable for right middle lobe pneumonia and CHF. ADMITTING DIAGNOSES: 1. Right middle lobe pneumonia. 2. Systemic inflammatory response syndrome. 3. Congestive heart failure exacerbation. 4. Coronary artery disease. 5. Hypertension. 6. Tobacco habituation. TREATMENT PLAN: The patient is going to be admitted to telemetry floor. He will be started on IV antibiotics. He will be also placed on IV Lasix and he will be resuming his home medication and the rest of the management as necessary, and the patient does not want to be transferred to [facility] in [place], and also refused to be referred to combination technician and the patient is a code level 2/DNR, DNI. [facility] /[id number]
[2020-11-23] MEDS: Albuterol/Ipratropium 3.0-0.5 MG/3 ML Neb Soln NEB SCH ×4 (00:16→17:00)
[2020-11-23 07:03] LABS: ANION GAP 13.6 mEq/L (7-13)
[2020-11-23] MEDS: Nicotine 21 MG/24 Hr Patch TRDERM SCH (08:53)
[2020-11-23] MEDS: Spironolactone 25 MG Tab PO SCH (08:54)
[2020-11-23] MEDS: Furosemide 40 MG/4 ML VIAL IVPUSH SCH (08:56)
[2020-11-23] MEDS: Aspirin 81 MG Tab.Chew PO SCH (08:57)
[2020-11-23] MEDS: Losartan 50 MG Tab PO SCH (08:59)
[2020-11-23] MEDS ORDERED: Enoxaparin 30 MG/0.3 ML Syringe SUBCUT SCH (09:00)
--- NOTE | 2020-11-23 11:33 | PN ---
DATE: 11/23/2020 SUBJECTIVE: The patient is doing much better this morning and the patient denies any chest pain, worsening of shortness of breath, abdominal pain, nor any other complaints, and telemetry has been sinus rhythm with no significant arrhythmia. LABORATORY DATA: Lab workup this morning, CBC; WBC is 11.1 (improving), hemoglobin is 11.1, hematocrit is 32.3, and platelet is 200. Chem-6, creatinine is 1.55, glucose is 110. The rest of the panel unremarkable, and lactic acid is 1.6. OBJECTIVE: Vital Signs: Blood pressure is 92/53, pulse of 56, respirations of 20, temperature of 99.1, and saturation is 96% on room air. Heart: Regular rate and rhythm. No gallops. No rubs. Lungs: Diminished breath sounds on both bases, but no significant crackles, no wheezing. Abdomen: Soft, nontender. Bowel sounds positive. Extremities: Negative for any pedal edema. No calf tenderness. MEDICATIONS: Reviewed. PLAN: We will continue with his present management and continue with IV Lasix and IV Levaquin, and the rest of his management. [facility] /[id number]
[2020-11-23] MEDS: Sodium Chloride 0.9% 10 ML Syringe FLUSH PRN ×2 (14:23→17:36)
[2020-11-23] MEDS ORDERED: Digoxin 500 MCG/2 ML Amp IVPUSH ONE (14:53)
[2020-11-23] MEDS ORDERED: Levofloxacin/Dextrose 5%-Water 250 MG in Premix Bag 1 BAG IV SCH (15:00)
[2020-11-23] MEDS: Metoprolol Succinate 50 MG Tab.ER PO SCH (15:51)
[2020-11-23] MEDS: Apixaban 5 MG Tab PO SCH ×2 (15:53→20:42)
[2020-11-23] MEDS: Piperacillin/Tazobactam 3.375 GM in Sodium Chloride 0.9% 100 ML IV SCH ×2 (17:33→23:57)
[2020-11-23] MEDS: Digoxin 125 MCG Tab PO SCH (17:33)
[2020-11-24] MEDS: Albuterol/Ipratropium 3.0-0.5 MG/3 ML Neb Soln NEB SCH ×3 (00:25→13:50)
[2020-11-24] MEDS: Piperacillin/Tazobactam 3.375 GM in Sodium Chloride 0.9% 100 ML IV SCH ×4 (05:51→23:48)
[2020-11-24] MEDS: Metoprolol Succinate 50 MG Tab.ER PO SCH (09:18)
[2020-11-24] MEDS: Losartan 50 MG Tab PO SCH (09:19)
[2020-11-24] MEDS: Digoxin 125 MCG Tab PO SCH (09:19)
[2020-11-24] MEDS: Spironolactone 25 MG Tab PO SCH (09:19)
[2020-11-24] MEDS: Apixaban 5 MG Tab PO SCH ×2 (09:20→22:38)
[2020-11-24] MEDS: Aspirin 81 MG Tab.Chew PO SCH (09:21)
[2020-11-24] MEDS: Furosemide 40 MG/4 ML VIAL IVPUSH SCH (09:22)
[2020-11-24] MEDS: Sodium Chloride 0.9% 10 ML Syringe FLUSH PRN ×4 (09:23→23:47)
[2020-11-24] MEDS: Nicotine 21 MG/24 Hr Patch TRDERM SCH (09:26)
--- NOTE | 2020-11-24 11:05 | PCM.PN ---
- General Info Date of Service: 11/24/20 Admission Dx/Problem (Free Text): Patient admitted for right lobar pneumonia and CHF exacerbation. Hospital course complicated with A. fib with RVR. Patient refused to be transferred to the [facility]. His DNR/DNR. Today he offers no complaints. He is doing okay. Heart rate on telemetry has been between 120 and 130. Patient denies any symptoms. Functional Status: Reports: Pain Controlled - Review of Systems General: Reports: No Symptoms HEENT: Reports: No Symptoms Pulmonary: Reports: No Symptoms Cardiovascular: Reports: No Symptoms Gastrointestinal: Reports: No Symptoms Genitourinary: Reports: No Symptoms Musculoskeletal: Reports: No Symptoms Skin: Reports: No Symptoms Neurological: Reports: No Symptoms Psychiatric: Reports: No Symptoms - Patient Data Vitals - Most Recent: Last Vital Signs Temp 96.5 F L 11/24/20 08:00 Pulse 120 H 11/24/20 09:19 Resp 18 11/24/20 08:00 BP 117/80 11/24/20 09:19 Pulse Ox 95 11/24/20 08:00 Weight - Most Recent: 129 lb 6.4 oz I&O - Last 24 Hours: Intake & Output 11/23/20 11/24/20 11/24/20 22:59 06:59 14:59 Intake Total 360 Output Total 1525 Balance -1525 360 Hipolito Results Last 24 Hours: Microbiology 11/22/20 13:45 Aerobic Blood Culture - Preliminary Blood - Arm, Left NO GROWTH AFTER 1 DAY Anaerobic Blood Culture - Preliminary NO GROWTH AFTER 1 DAY 11/22/20 13:40 Aerobic Blood Culture - Preliminary Blood - Arm, Right NO GROWTH AFTER 1 DAY Anaerobic Blood Culture - Preliminary NO GROWTH AFTER 1 DAY Med Orders - Current: Current Medications Acetaminophen (Tylenol) 650 mg PO Q4H PRN PRN Reason: Pain (Mild 1-3)/fever Albuterol/Ipratropium (Duoneb 3.0-0.5 Mg/3 Ml) 3 ml NEB Q6HRRT [facility] Last Admin: 11/24/20 10:36 Dose: Not Given Documented by: Apixaban (Eliquis) 2.5 mg PO BID [facility] Last Admin: 11/24/20 09:20 Dose: 2.5 mg Documented by: Aspirin (Aspirin) 81 mg PO DAILY [facility] Last Admin: 11/24/20 09:21 Dose: 81 mg Documented by: Digoxin (Lanoxin) 125 mcg PO DAILY [facility] Last Admin: 11/24/20 09:19 Dose: 125 mcg Documented by: Docusate Sodium (Colace) 100 mg PO BID PRN PRN Reason: Constipation Furosemide (Lasix) 40 mg IVPUSH DAILY [facility] Last Admin: 11/24/20 09:22 Dose: 40 mg Documented by: Piperacillin Sod/Tazobactam (Sod 3.375 gm/ Sodium Chloride) 100 mls @ 200 mls/hr IV Q6HR [facility] Last Admin: 11/24/20 05:51 Dose: 200 mls/hr Documented by: Losartan Potassium (Cozaar) 50 mg PO DAILY [facility] Last Admin: 11/24/20 09:19 Dose: 50 mg Documented by: Metoprolol Succinate (Toprol Xl) 50 mg PO DAILY [facility] Last Admin: 11/24/20 09:18 Dose: 50 mg Documented by: Nicotine (Habitrol) 21 mg TRDERM DAILY [facility] Last Admin: 11/24/20 09:26 Dose: Not Given Documented by: Ondansetron HCl (Zofran Odt) 4 mg PO Q4H PRN PRN Reason: nausea, able to take PO Oxycodone HCl (Oxycodone) 5 mg PO Q4H PRN PRN Reason: Pain (moderate 4-6) Sodium Chloride (Saline Flush) 10 ml FLUSH ASDIRECTED PRN PRN Reason: Keep Vein Open Last Admin: 11/24/20 09:23 Dose: 10 ml Documented by: Spironolactone (Aldactone) 25 mg PO DAILY [facility] Last Admin: 11/24/20 09:19 Dose: 25 mg Documented by: Discontinued Medications Albuterol/Ipratropium (Duoneb 3.0-0.5 Mg/3 Ml) 3 ml NEB ONETIME ONE Stop: 11/22/20 13:33 Last Admin: 11/22/20 14:01 Dose: 3 ml Documented by: Digoxin (Lanoxin) 250 mcg IVPUSH ONETIME ONE Stop: 11/23/20 14:54 Last Admin: 11/23/20 15:02 Dose: 250 mcg Documented by: Enoxaparin Sodium (Lovenox) 30 mg SUBCUT DAILY [facility] Last Admin: 11/23/20 08:53 Dose: 30 mg Documented by: Levofloxacin/Dextrose 750 mg/ (Premix) 150 mls @ 100 mls/hr IV ONETIME ONE Stop: 11/22/20 15:50 Last Admin: 11/22/20 14:30 Dose: 100 mls/hr Documented by: Levofloxacin/Dextrose 250 mg/ (Premix) 50 mls @ 50 mls/hr IV Q24H [facility] Last Admin: 11/23/20 14:21 Dose: 50 mls/hr Documented by: Methylprednisolone Sodium Succinate (Solu-Medrol) 125 mg IVPUSH ONETIME ONE Stop: 11/22/20 13:33 Last Admin: 11/22/20 14:01 Dose: 125 mg Documented by: Ondansetron HCl (Zofran) 4 mg IV ONETIME ONE Stop: 11/22/20 13:33 Last Admin: 11/22/20 14:01 Dose: 4 mg Documented by: Sodium Chloride (Saline Flush) 10 ml FLUSH ASDIRECTED PRN PRN Reason: Keep Vein Open Last Admin: 11/22/20 13:59 Dose: 10 ml Documented by: - Exam Quality Assessment: DVT Prophylaxis General: Alert, Oriented HEENT: Pupils Equal, Pupils Reactive, EOMI, Mucous Membr. Moist/[place] Neck: Supple Lungs: Clear to Auscultation, Normal Respiratory Effort Cardiovascular: Regular Rate, Regular Rhythm GI/Abdominal Exam: Normal Bowel Sounds, Soft, Non-Tender, No Organomegaly, No Distention, No Abnormal Bruit, No Mass, Pelvis Stable (Male) Exam: No Hernia, Normal Inspection, Normal Prostate, Circumcised Back Exam: Normal Inspection, Full Range of Motion Extremities: Normal Inspection, Normal Range of Motion, Non-Tender, No Pedal Edema, Normal Capillary Refill Skin: Warm, Dry, Intact Wound/Incisions: Healing Well Neurological: No New Focal Deficit Psy/Mental Status: Alert, Normal Affect, Normal Mood Sepsis Event Note - Evaluation Sepsis Screening Result: Sepsis Risk - Focused Exam Vital Signs: Vital Signs Temp Pulse Pulse Resp BP BP Pulse Ox 11/24/20 09:19 120 H 117/80 11/24/20 09:18 120 H 117/80 11/24/20 08:00 96.5 F L 120 H 18 117/80 95 11/24/20 04:00 97.3 F 105 H 20 94/61 95 11/24/20 00:00 99.0 F 130 H 20 105/65 96 - Problem List & Annotations (1) Atrial fibrillation with RVR SNOMED Code(s): 426942423192140 Code(s): I48.91 - UNSPECIFIED ATRIAL FIBRILLATION Status: Acute Current Visit: Yes - Problem List Review Problem List Initiated/Reviewed/Updated: Yes - Plan Plan:: #Right lower lobe pneumonia Continue Zosyn #CHF exacerbation Continue IV diuretics Fluid restriction Daily weights #A. fib with RVR Continue current rate control medication Started on apixaban for chronic anticoagulation Patient declined to be transferred to higher level of care #General diet #DNR/DNR Disposition: Discharged home in stable
[2020-11-24 12:20] LABS: ANION GAP 14.4 mEq/L (7-13)
[2020-11-25] MEDS: Sodium Chloride 0.9% 10 ML Syringe FLUSH PRN ×3 (00:24→06:11)
[2020-11-25] MEDS: Piperacillin/Tazobactam 3.375 GM in Sodium Chloride 0.9% 100 ML IV SCH ×2 (05:37→12:20)
[2020-11-25] MEDS: Digoxin 125 MCG Tab PO SCH (09:01)
[2020-11-25] MEDS: Apixaban 5 MG Tab PO SCH (09:01)
[2020-11-25] MEDS: Spironolactone 25 MG Tab PO SCH (09:04)
[2020-11-25] MEDS: Losartan 50 MG Tab PO SCH (09:04)
[2020-11-25] MEDS: Metoprolol Succinate 50 MG Tab.ER PO SCH (09:05)
[2020-11-25] MEDS: Aspirin 81 MG Tab.Chew PO SCH (09:05)
[2020-11-25] MEDS: Nicotine 21 MG/24 Hr Patch TRDERM SCH (09:06)
[2020-11-25] MEDS: Furosemide 40 MG/4 ML VIAL IVPUSH SCH (09:06)
--- NOTE | 2020-11-25 10:58 | PCM.DCSUM1 ---
Discharge Summary - Hospital Course Free Text/Narrative:: Patient admitted for right lobar pneumonia and CHF exacerbation. Hospital course complicated with A. fib with RVR. Patient refused to be transferred to the [facility]. His DNR/DNR. Heart rate eventually improved. His symptoms improved with antibiotic. He was safely discharged home with plan to follow-up with PCP and cardiology. Diagnosis: Stroke: No - Discharge Data Discharge Date: 11/25/20 Discharge Disposition: Home, Self-Care 01 Condition: Good - Referral to Home Health Primary Care Physician: PCP None - Discharge Diagnosis/Problem(s) (1) Atrial fibrillation with RVR SNOMED Code(s): 474711696711784 ICD Code: I48.91 - UNSPECIFIED ATRIAL FIBRILLATION Status: Acute Current Visit: Yes - Patient Instructions Diet: Heart Healthy Diet Fluid Restriction: 1500 mL Activity: As Tolerated Driving: May Drive Today Showering/Bathing: May Shower Notify Provider of: Fever, Swelling and Redness, Nausea and/or Vomiting - Discharge Plan *PRESCRIPTION DRUG MONITORING PROGRAM REVIEWED*: Not Applicable *COPY OF PRESCRIPTION DRUG MONITORING REPORT IN PATIENT ZAINAB: Not Applicable Prescriptions/Med Rec: Apixaban [Eliquis] 2.5 mg PO BID #60 tablet Furosemide 40 mg PO BID 1 Days #60 tablet Nicotine [Habitrol] 21 mg TRDERM DAILY #14 patch levoFLOXacin [Levaquin] 750 mg PO DAILY #7 tab Metoprolol Succinate 100 mg PO DAILY #30 tab.er.24h Home Medications: Home Meds Aspirin 81 mg PO DAILY 10/18/20 [History] Losartan [Cozaar] 50 mg PO DAILY #30 tablet 10/20/20 [Rx] Spironolactone [Aldactone] 25 mg PO DAILY #30 tablet 10/20/20 [Rx] Apixaban [Eliquis] 2.5 mg PO BID #60 tablet 11/25/20 [Rx] Furosemide 40 mg PO BID 1 Days #60 tablet 11/25/20 [Rx] Metoprolol Succinate 100 mg PO DAILY #30 tab.er.24h 11/25/20 [Rx] Nicotine [Habitrol] 21 mg TRDERM DAILY #14 patch 11/25/20 [Rx] levoFLOXacin [Levaquin] 750 mg PO DAILY #7 tab 11/25/20 [Rx] - Discharge Summary/Plan Comment DC Time >30 min.: Yes - General Info Date of Service: 11/25/20 Functional Status: Reports: Pain Controlled - Review of Systems General: Reports: No Symptoms HEENT: Reports: No Symptoms Pulmonary: Reports: No Symptoms Cardiovascular: Reports: No Symptoms Gastrointestinal: Reports: No Symptoms Genitourinary: Reports: No Symptoms Musculoskeletal: Reports: No Symptoms Skin: Reports: No Symptoms Neurological: Reports: No Symptoms Psychiatric: Reports: No Symptoms - Patient Data Vitals - Most Recent: Last Vital Signs Temp 97.6 F 11/25/20 08:58 Pulse 68 11/25/20 09:05 Resp 18 11/25/20 08:58 BP 105/66 11/25/20 09:05 Pulse Ox 98 11/25/20 08:58 Weight - Most Recent: 126 lb 9.6 oz I&O - Last 24 hours: Intake & Output 11/24/20 11/25/20 11/25/20 22:59 06:59 14:59 Intake Total 694 395 Output Total 1125 600 Balance -431 -205 Lab Results - Last 24 hrs: Laboratory Results - last 24 hr 11/24/20 11/24/20 Range/Units 11:50 11:50 WBC 10.7 H (5.0-10.0) 10^3/uL RBC 4.23 L (4.6-6.2) 10^6/uL Hgb 14.3 D (14.0-18.0) g/dL Hct 40.3 (40.0-54.0) % MCV 95.3 (80-100) fL MCH 33.8 (27.0-34.0) pg MCHC 35.5 H (33.0-35.0) g/dL Plt Count 236 (150-450) 10^3/uL Sodium 135 L (136-145) mmol/L Potassium 4.4 (3.5-5.1) mmol/L Chloride 96 L (98-107) mmol/L Carbon Dioxide 29 (21-32) mmol/L Anion Gap 14.4 H (7-13) mEq/L BUN 26 H (7-18) mg/dL Creatinine 1.66 H (0.70-1.30) mg/dL Est Cr Clr Drug Dosing 36.83 mL/min Estimated GFR (MDRD) 42 Glucose 93 (74-99) mg/dL Calcium 9.2 (8.5-10.1) mg/dL Phosphorus 4.8 H (2.6-4.7) mg/dL Magnesium 2.1 (1.8-2.4) mg/dL CESAR Results - Last 24 hrs: Microbiology 11/22/20 13:45 Aerobic Blood Culture - Preliminary Blood - Arm, Left NO GROWTH AFTER 2 DAYS Anaerobic Blood Culture - Preliminary NO GROWTH AFTER 2 DAYS 11/22/20 13:40 Aerobic Blood Culture - Preliminary Blood - Arm, Right NO GROWTH AFTER 2 DAYS Anaerobic Blood Culture - Preliminary NO GROWTH AFTER 2 DAYS Med Orders - Current: Current Medications Acetaminophen (Tylenol) 650 mg PO Q4H PRN PRN Reason: Pain (Mild 1-3)/fever Apixaban (Eliquis) 2.5 mg PO BID [facility] Last Admin: 11/25/20 09:01 Dose: 2.5 mg Documented by: Aspirin (Aspirin) 81 mg PO DAILY [facility] Last Admin: 11/25/20 09:05 Dose: 81 mg Documented by: Digoxin (Lanoxin) 125 mcg PO DAILY [facility] Last Admin: 11/25/20 09:01 Dose: 125 mcg Documented by: Docusate Sodium (Colace) 100 mg PO BID PRN PRN Reason: Constipation Furosemide (Lasix) 40 mg IVPUSH DAILY [facility] Last Admin: 11/25/20 09:06 Dose: 40 mg Documented by: Piperacillin Sod/Tazobactam (Sod 3.375 gm/ Sodium Chloride) 100 mls @ 200 mls/hr IV Q6HR [facility] Last Admin: 11/25/20 05:37 Dose: 100 mls/hr Documented by: Losartan Potassium (Cozaar) 50 mg PO DAILY [facility] Last Admin: 11/25/20 09:04 Dose: 50 mg Documented by: Metoprolol Succinate (Toprol Xl) 50 mg PO DAILY [facility] Last Admin: 11/25/20 09:05 Dose: 50 mg Documented by: Miscellaneous Information (Check Patch) 1 ea TRDERM BEDTIME [facility] Nicotine (Habitrol) 21 mg TRDERM DAILY [facility] Last Admin: 11/25/20 09:06 Dose: Not Given Documented by: Ondansetron HCl (Zofran Odt) 4 mg PO Q4H PRN PRN Reason: nausea, able to take PO Oxycodone HCl (Oxycodone) 5 mg PO Q4H PRN PRN Reason: Pain (moderate 4-6) Sodium Chloride (Saline Flush) 10 ml FLUSH ASDIRECTED PRN PRN Reason: Keep Vein Open Last Admin: 11/25/20 06:11 Dose: 10 ml Documented by: Spironolactone (Aldactone) 25 mg PO DAILY [facility] Last Admin: 11/25/20 09:04 Dose: 25 mg Documented by: Discontinued Medications Albuterol/Ipratropium (Duoneb 3.0-0.5 Mg/3 Ml) 3 ml NEB ONETIME ONE Stop: 11/22/20 13:33 Last Admin: 11/22/20 14:01 Dose: 3 ml Documented by: Albuterol/Ipratropium (Duoneb 3.0-0.5 Mg/3 Ml) 3 ml NEB Q6HRRT [facility] Last Admin: 11/24/20 13:50 Dose: Not Given Documented by: Digoxin (Lanoxin) 250 mcg IVPUSH ONETIME ONE Stop: 11/23/20 14:54 Last Admin: 11/23/20 15:02 Dose: 250 mcg Documented by: Enoxaparin Sodium (Lovenox) 30 mg SUBCUT DAILY [facility] Last Admin: 11/23/20 08:53 Dose: 30 mg Documented by: Levofloxacin/Dextrose 750 mg/ (Premix) 150 mls @ 100 mls/hr IV ONETIME ONE Stop: 11/22/20 15:50 Last Admin: 11/22/20 14:30 Dose: 100 mls/hr Documented by: Levofloxacin/Dextrose 250 mg/ (Premix) 50 mls @ 50 mls/hr IV Q24H [facility] Last Admin: 11/23/20 14:21 Dose: 50 mls/hr Documented by: Methylprednisolone Sodium Succinate (Solu-Medrol) 125 mg IVPUSH ONETIME ONE Stop: 11/22/20 13:33 Last Admin: 11/22/20 14:01 Dose: 125 mg Documented by: Ondansetron HCl (Zofran) 4 mg IV ONETIME ONE Stop: 11/22/20 13:33 Last Admin: 11/22/20 14:01 Dose: 4 mg Documented by: Sodium Chloride (Saline Flush) 10 ml FLUSH ASDIRECTED PRN PRN Reason: Keep Vein Open Last Admin: 11/22/20 13:59 Dose: 10 ml Documented by: - Exam General: Reports: Alert, Oriented HEENT: Reports: Pupils Equal, Pupils Reactive, EOMI, Mucous Membr. Moist/Mier Neck: Reports: Supple Lungs: Reports: Clear to Auscultation, Normal Respiratory Effort Cardiovascular: Reports: Regular Rate, Regular Rhythm GI/Abdominal Exam: Normal Bowel Sounds, Soft, Non-Tender, No Organomegaly, No Distention, No Abnormal Bruit, No Mass, Pelvis Stable (Male) Exam: No Hernia, Normal Inspection, Normal Prostate, Circumcised Rectal (Males) Exam: Normal Exam, Normal Rectal Tone, Prostate Normal Back Exam: Reports: Normal Inspection, Full Range of Motion Extremities: Normal Inspection, Normal Range of Motion, Non-Tender, No Pedal Edema, Normal Capillary Refill Skin: Reports: Warm, Dry, Intact Wound/Incisions: Reports: Healing Well Neurological: Reports: No New Focal Deficit Psy/Mental Status: Reports: Alert, Normal Affect, Normal Mood
== END 2020-11-25 13:44 | disposition home or self-care (01) | DRG 871 ==
LOC: DL.ED 13:04 → DL.MS 14:40
PROVIDERS: ADMIT Internal Medicine; ATTEND Student in an Organized Health Care Education/Training Program
DX: J42 Unspecified chronic bronchitis (principal); A41.89 Other specified sepsis; J18.9 Pneumonia, unspecified organism; I50.9 Heart failure, unspecified; I50.23 Acute on chronic systolic (congestive) heart failure; J44.0 Chronic obstructive pulmonary disease with (acute) lower respiratory infection; I11.0 Hypertensive heart disease with heart failure; R65.10 Systemic inflammatory response syndrome (SIRS) of non-infectious origin without acute organ dysfunction; I25.10 Atherosclerotic heart disease of native coronary artery without angina pectoris; F17.210 Nicotine dependence, cigarettes, uncomplicated; I48.91 Unspecified atrial fibrillation; Z20.822 Contact with and (suspected) exposure to COVID-19; Z66 Do not resuscitate; Z79.01 Long term (current) use of anticoagulants; I25.2 Old myocardial infarction; Z79.82 Long term (current) use of aspirin; Z79.899 Other long term (current) drug therapy
CPT/HCPCS: 36415; 71046; 80053; 83605; 83880; 84484; 85025; 87040 ×2; 87804 ×2; 93005; 93010; 94640; 96374; 96375; 99284; 99285; J1956; J2405; J2930; U0002; 80048; 83735; 84100; 85027; 99222; 99231; 99232; 99239; A9270-GY; J1160; J1650; J1940; J2543; J7050; J7620-GY

== ENCOUNTER 2022-03-05 15:36 | Inpatient (IN) | payer MEDICARE, OTHER ==
[2022-03-05] MEDS ORDERED: Diltiazem 25 MG/5 ML SDV IVPUSH ONE (16:11)
[2022-03-05] MEDS ORDERED: Diltiazem 125 MG in Sodium Chloride 0.9% 125 ML IV SCH (16:30)
[2022-03-05] MEDS ORDERED: Heparin Sodium/0.45% NaCl 25,000 UNITS/500 ML BAG IV ONE (16:43)
[2022-03-05 16:47] LABS: PTT,PARTIAL THROMBOPLSTIN TIME 25.1 SEC (22.0-34.0)
[2022-03-05 16:49] LABS: ANION GAP 20.7 mEq/L (7-13)
[2022-03-05 17:19] LABS: CORONAVIRUS COVID-19 NAA NEGATIVE (NEGATIVE)
[2022-03-05] MEDS ORDERED: Sodium Chloride 0.9% 10 ML Syringe FLUSH PRN (18:17)
[2022-03-05] MEDS ORDERED: Polyethylene Glycol 3350 Powder 17 GM Packet PO PRN (18:17)
[2022-03-05] MEDS ORDERED: Ondansetron 4 MG/2 ML SDV IVPUSH PRN (18:17)
[2022-03-05] MEDS ORDERED: Acetaminophen/HYDROcodone 325-5 MG Tab PO PRN (18:17)
[2022-03-05] MEDS ORDERED: Acetaminophen 325 MG Tab PO PRN (18:17)
[2022-03-05] MEDS ORDERED: Bisacodyl 5 MG Tab PO PRN (18:17)
[2022-03-05] MEDS ORDERED: Promethazine 25 MG/ML SDV IM PRN (18:17)
[2022-03-05] MEDS ORDERED: HYDROmorphone 0.5 MG/0.5 ML Syringe IVPUSH PRN (18:17)
[2022-03-05] MEDS ORDERED: Heparin Sodium/0.45% NaCl 25,000 UNITS/500 ML BAG IV SCH (18:45)
[2022-03-05] MEDS ORDERED: Diltiazem 125 MG in Sodium Chloride 0.9% 100 ML IV SCH (18:45)
[2022-03-05] MEDS ORDERED: Heparin Sodium 5,000 Units/ML Vial IVPUSH ONE (18:45)
[2022-03-05] MEDS ORDERED: Sodium Chloride 0.9% 1,000 ML IV SCH (20:15)
[2022-03-05] MEDS ORDERED: Sodium Chloride 0.9% 500 ML IV SCH (20:15)
[2022-03-05] MEDS ORDERED: Nicotine 21 MG/24 Hr Patch TRDERM ONE (20:17)
[2022-03-05] MEDS: Sodium Chloride 0.9% 10 ML Syringe FLUSH SCH (20:41)
[2022-03-05] MEDS ORDERED: Metoprolol Succinate 50 MG Tab.ER PO SCH ×2 (21:00)
[2022-03-05] MEDS: Albuterol/Ipratropium 3.0-0.5 MG/3 ML Neb Soln NEB PRN (21:30)
[2022-03-05] MEDS ORDERED: Morphine 2 MG/ML SYRINGE IVPUSH ONE (22:13)
[2022-03-05] MEDS ORDERED: LORazepam 2 MG/ML SDV IVPUSH ONE (22:13)
[2022-03-05] MEDS ORDERED: Flumazenil 0.1 MG/ML 5 ML MDV IVPUSH PRN (22:13)
[2022-03-05] MEDS ORDERED: Pantoprazole 40 MG Vial IVPUSH ONE (22:15)
[2022-03-05 22:54] LABS: ANION GAP 18.6 mEq/L (7-13)
[2022-03-06 03:34] LABS: ANION GAP 17.4 mEq/L (7-13)
[2022-03-06] MEDS ORDERED: Heparin Sodium 5,000 Units/ML Vial IVPUSH ONE (03:51)
[2022-03-06] MEDS: Pantoprazole 40 MG Tab.CR PO SCH ×2 (05:16→17:01)
[2022-03-06] MEDS: Albuterol/Ipratropium 3.0-0.5 MG/3 ML Neb Soln NEB PRN ×2 (05:16→09:58)
[2022-03-06] MEDS ORDERED: Metoprolol Succinate 50 MG Tab.ER PO SCH (09:00)
[2022-03-06] MEDS: Aspirin 81 MG Tab.Chew PO SCH (09:58)
[2022-03-06] MEDS: Sodium Chloride 0.9% 10 ML Syringe FLUSH SCH ×2 (09:59→21:11)
[2022-03-06] MEDS ORDERED: Furosemide 20 MG/2 ML VIAL IVPUSH ONE (10:00)
[2022-03-06] MEDS ORDERED: guaiFENesin/Dextromethorphan 100-10 MG/5 ML Soln 5 ML Cup PO PRN (12:53)
[2022-03-06] MEDS ORDERED: Heparin Sodium 5,000 Units/ML Vial SUBCUT ONE (19:18)
[2022-03-06] MEDS ORDERED: QUEtiapine 25 MG Tab PO PRN (19:26)
[2022-03-06] MEDS ORDERED: Melatonin 3 MG Tab PO PRN (20:45)
[2022-03-06] MEDS: Apixaban 5 MG Tab PO SCH (20:48)
[2022-03-06] MEDS: Nicotine 21 MG/24 Hr Patch TRDERM SCH (21:00)
[2022-03-07] MEDS ORDERED: Furosemide 20 MG/2 ML VIAL IVPUSH ONE ×2 (05:00→18:00)
[2022-03-07] MEDS: Pantoprazole 40 MG Tab.CR PO SCH ×2 (05:30→17:03)
[2022-03-07 07:08] LABS: ANION GAP 17.6 mEq/L (7-13)
[2022-03-07] MEDS ORDERED: Sodium Chloride 0.9% 1,000 ML IV SCH (08:45)
[2022-03-07] MEDS ORDERED: Apixaban 5 MG Tab PO SCH (09:00)
[2022-03-07] MEDS: Sodium Chloride 0.9% 10 ML Syringe FLUSH SCH ×2 (09:55→20:17)
[2022-03-07] MEDS: Metoprolol Succinate 50 MG Tab.ER PO SCH (09:57)
[2022-03-07] MEDS: Aspirin 81 MG Tab.Chew PO SCH (09:58)
[2022-03-07] MEDS: Apixaban 5 MG Tab PO SCH ×2 (09:58→20:16)
[2022-03-07] MEDS: Nicotine 21 MG/24 Hr Patch TRDERM SCH (10:00)
[2022-03-07 11:30] LABS: AMPHETAMINES,URINE NEGATIVE (NEGATIVE); BARBITURATES,URINE NEGATIVE (NEGATIVE); BENZODIAZEPINE,URINE POSITIVE (NEGATIVE); MDMA (ECSTASY), URINE NEGATIVE (NEGATIVE); METHADONE,URINE NEGATIVE (NEGATIVE); METHAMPHETAMINES,URINE NEGATIVE (NEGATIVE); OPIATES,URINE NEGATIVE (NEGATIVE); OXYCODONE,URINE NEGATIVE (NEGATIVE); PHENCYCLIDINE,URINE NEGATIVE (NEGATIVE); TCA,URINE NEGATIVE (NEGATIVE)
[2022-03-08] MEDS: Pantoprazole 40 MG Tab.CR PO SCH ×2 (05:05→18:12)
[2022-03-08 07:31] LABS: ANION GAP 16.1 mEq/L (7-13)
[2022-03-08] MEDS: Aspirin 81 MG Tab.Chew PO SCH (09:32)
[2022-03-08] MEDS: Apixaban 5 MG Tab PO SCH ×2 (09:32→21:58)
[2022-03-08] MEDS: Sodium Chloride 0.9% 10 ML Syringe FLUSH SCH ×2 (09:33→21:51)
[2022-03-08] MEDS: Metoprolol Succinate 50 MG Tab.ER PO SCH (09:33)
[2022-03-08] MEDS: Losartan 25 MG Tab PO SCH (09:33)
[2022-03-08] MEDS: Nicotine 21 MG/24 Hr Patch TRDERM SCH (09:34)
[2022-03-09] MEDS: Pantoprazole 40 MG Tab.CR PO SCH (06:01)
[2022-03-09 08:27] LABS: ANION GAP 15.9 mEq/L (7-13)
[2022-03-09] MEDS: Losartan 25 MG Tab PO SCH (09:11)
[2022-03-09] MEDS: Apixaban 5 MG Tab PO SCH (09:12)
[2022-03-09] MEDS: Aspirin 81 MG Tab.Chew PO SCH (09:13)
[2022-03-09] MEDS: Nicotine 21 MG/24 Hr Patch TRDERM SCH (09:13)
[2022-03-09] MEDS: Metoprolol Succinate 50 MG Tab.ER PO SCH (09:13)
[2022-03-09] MEDS: Sodium Chloride 0.9% 10 ML Syringe FLUSH SCH (09:14)
== END 2022-03-09 13:10 | disposition home or self-care (01) | DRG 682 ==
LOC: DL.ED 15:36 → DL.MS 17:14
PROVIDERS: ADMIT Internal Medicine; ATTEND Internal Medicine
DX: N17.9 Acute kidney failure, unspecified (principal); I50.43 Acute on chronic combined systolic (congestive) and diastolic (congestive) heart failure; I50.9 Heart failure, unspecified; E87.2 Acidosis; I16.1 Hypertensive emergency; I42.9 Cardiomyopathy, unspecified; I48.91 Unspecified atrial fibrillation; A05.9 Bacterial foodborne intoxication, unspecified; I11.0 Hypertensive heart disease with heart failure; Z91.14 Patient's other noncompliance with medication regimen; Z79.01 Long term (current) use of anticoagulants; I25.10 Atherosclerotic heart disease of native coronary artery without angina pectoris; K46.9 Unspecified abdominal hernia without obstruction or gangrene; F17.210 Nicotine dependence, cigarettes, uncomplicated; K52.9 Noninfective gastroenteritis and colitis, unspecified; R74.01 Elevation of levels of liver transaminase levels; R73.9 Hyperglycemia, unspecified; D64.9 Anemia, unspecified; E87.8 Other disorders of electrolyte and fluid balance, not elsewhere classified; Z20.822 Contact with and (suspected) exposure to COVID-19; Z91.19 Patient's noncompliance with other medical treatment and regimen; Z79.82 Long term (current) use of aspirin; I25.2 Old myocardial infarction; Z79.899 Other long term (current) drug therapy
CPT/HCPCS: 0240U; 36415; 71045; 76700; 76857; 80048; 80053; 80061; 80305; 80307; 82150; 82977; 83605; 83690; 83735; 83880; 83930; 83935; 84100; 84300; 84439; 84443; 84484; 85025; 85610; 85730; 87040; 93005; 93010; 96365; 96375; 96376; 99284; 99285; A9270-GY; C9113; J1644; J1940; J2060; J2270; J3490; J7030; J7040; J7620-GY

== ENCOUNTER 2022-05-23 16:29 | Emergency (ER) | payer MEDICARE, OTHER ==
[2022-05-23 18:00] LABS: ANION GAP 19.3 mEq/L (7-13); CHLORIDE,CL 89 mmol/L (98-107); SODIUM,NA 127 mmol/L (136-145)
[2022-05-23 18:01] LABS: CORONAVIRUS COVID-19 NAA POSITIVE (NEGATIVE)
[2022-05-23 18:01] LABS: ESTIMATED GFR 34 mL/min (>=60)
== END 2022-05-23 18:39 | disposition home or self-care (01) ==
LOC: DL.ED 16:29
DX: U07.1 COVID-19 (principal); I48.91 Unspecified atrial fibrillation; I25.2 Old myocardial infarction; F17.210 Nicotine dependence, cigarettes, uncomplicated; Z79.82 Long term (current) use of aspirin; Z79.01 Long term (current) use of anticoagulants; Z79.899 Other long term (current) drug therapy
CPT/HCPCS: 0240U; 36415; 71045; 80053; 80307; 82150; 83690; 84484; 85025; 93005; 99284

== ENCOUNTER 2022-05-31 22:32 | Emergency (ER) | payer MEDICARE ==
[2022-05-31 23:29] LABS: ANION GAP 17.5 mEq/L (7-13)
[2022-05-31] MEDS ORDERED: Furosemide 40 MG/4 ML VIAL IVPUSH ONE (23:37)
== END 2022-06-01 00:05 | disposition home or self-care (01) ==
LOC: DL.ED 22:32
DX: U09.9 Post COVID-19 condition, unspecified (principal); R06.00 Dyspnea, unspecified; I50.40 Unspecified combined systolic (congestive) and diastolic (congestive) heart failure; I25.2 Old myocardial infarction; F17.210 Nicotine dependence, cigarettes, uncomplicated; Z79.899 Other long term (current) drug therapy; Z79.82 Long term (current) use of aspirin; Z79.01 Long term (current) use of anticoagulants
CPT/HCPCS: 36415; 71045; 80053; 83605; 83880; 84484; 85025; 87040; 93005; 96374; 99285-25; J1940

== ENCOUNTER 2022-06-04 18:23 | Inpatient (IN) | payer MEDICARE ==
[2022-06-04] MEDS: Sodium Chloride 0.9% 10 ML Syringe FLUSH PRN (19:19)
[2022-06-04 19:24] LABS: ANION GAP 15.8 mEq/L (7-13)
[2022-06-04] MEDS ORDERED: Albuterol/Ipratropium 3.0-0.5 MG/3 ML Neb Soln NEB PRN (21:12)
[2022-06-04] MEDS ORDERED: oxyCODONE 5 MG Tab PO PRN (21:12)
[2022-06-04] MEDS ORDERED: hydrALAZINE 20 MG/ML SDV IVPUSH PRN (21:17)
[2022-06-04] MEDS ORDERED: Apixaban 5 MG Tab PO SCH (21:30)
[2022-06-04] MEDS ORDERED: Albuterol/Ipratropium 3.0-0.5 MG/3 ML Neb Soln INH PRN (21:36)
[2022-06-04] MEDS ORDERED: Apixaban 5 MG Tab PO ONE (21:45)
[2022-06-04] MEDS ORDERED: Metoprolol Succinate 50 MG Tab.ER PO ONE (21:45)
[2022-06-04] MEDS: Acetaminophen 325 MG Tab PO PRN (21:59)
[2022-06-04] MEDS ORDERED: Heparin Sodium 5,000 Units/ML Vial SUBCUT SCH (22:00)
[2022-06-05 07:16] LABS: ANION GAP 16.6 mEq/L (7-13)
[2022-06-05] MEDS: Apixaban 5 MG Tab PO SCH ×2 (08:26→20:56)
[2022-06-05] MEDS: Aspirin 81 MG Tab.Chew PO SCH (08:27)
[2022-06-05] MEDS: Metoprolol Succinate 50 MG Tab.ER PO SCH ×2 (08:27→20:57)
[2022-06-05] MEDS ORDERED: Albumin Human 50 GM in Premix Bag 1 BAG IV ONE (12:26)
[2022-06-05] MEDS: Furosemide 40 MG Tab PO SCH (13:26)
[2022-06-05] MEDS: Sodium Chloride 0.9% 10 ML Syringe FLUSH PRN (20:58)
[2022-06-06] MEDS: Pantoprazole 40 MG Tab.CR PO SCH (05:42)
[2022-06-06 07:53] LABS: ANION GAP 17.6 mEq/L (7-13)
[2022-06-06] MEDS: Losartan 25 MG Tab PO SCH (08:18)
[2022-06-06] MEDS: Aspirin 81 MG Tab.Chew PO SCH (08:18)
[2022-06-06] MEDS: Apixaban 5 MG Tab PO SCH ×2 (08:18→20:57)
[2022-06-06] MEDS: Furosemide 40 MG Tab PO SCH ×2 (08:18→13:15)
[2022-06-06] MEDS: Metoprolol Succinate 50 MG Tab.ER PO SCH ×2 (08:19→20:55)
[2022-06-06] MEDS: Sodium Chloride 0.9% 10 ML Syringe FLUSH PRN (21:01)
[2022-06-07] MEDS: Pantoprazole 40 MG Tab.CR PO SCH (05:54)
[2022-06-07] MEDS: Losartan 25 MG Tab PO SCH (09:37)
[2022-06-07] MEDS: Metoprolol Succinate 50 MG Tab.ER PO SCH (09:37)
[2022-06-07] MEDS: Furosemide 40 MG Tab PO SCH (09:38)
[2022-06-07] MEDS: Aspirin 81 MG Tab.Chew PO SCH (09:43)
[2022-06-07] MEDS: Apixaban 5 MG Tab PO SCH (09:43)
[2022-06-07] MEDS ORDERED: Midodrine 2.5 MG Tab PO ONE (11:00)
[2022-06-07] MEDS ORDERED: Sodium Chloride 0.9% 250 ML IV SCH (11:00)
[2022-06-07] MEDS: Acetaminophen 325 MG Tab PO PRN (11:09)
[2022-06-08] MEDS ORDERED: Potassium Chloride 10 MEQ Tab.ER PO SCH (08:30)
== END 2022-06-07 12:45 | disposition home or self-care (01) | DRG 291 ==
LOC: DL.ED 18:23 → DL.MS 20:01
PROVIDERS: ADMIT Internal Medicine; ATTEND Internal Medicine
DX: I50.9 Heart failure, unspecified (principal); I13.0 Hypertensive heart and chronic kidney disease with heart failure and stage 1 through stage 4 chronic kidney disease, or unspecified chronic kidney disease; I50.23 Acute on chronic systolic (congestive) heart failure; E87.1 Hypo-osmolality and hyponatremia; M19.90 Unspecified osteoarthritis, unspecified site; E87.5 Hyperkalemia; N17.9 Acute kidney failure, unspecified; J44.9 Chronic obstructive pulmonary disease, unspecified; I42.9 Cardiomyopathy, unspecified; I48.91 Unspecified atrial fibrillation; E87.8 Other disorders of electrolyte and fluid balance, not elsewhere classified; I95.9 Hypotension, unspecified; E87.6 Hypokalemia; R73.9 Hyperglycemia, unspecified; D63.1 Anemia in chronic kidney disease; N18.30 Chronic kidney disease, stage 3 unspecified; K76.0 Fatty (change of) liver, not elsewhere classified; Z20.822 Contact with and (suspected) exposure to COVID-19; E88.09 Other disorders of plasma-protein metabolism, not elsewhere classified; I25.10 Atherosclerotic heart disease of native coronary artery without angina pectoris; I25.2 Old myocardial infarction; Z86.79 Personal history of other diseases of the circulatory system; Z79.01 Long term (current) use of anticoagulants; Z87.891 Personal history of nicotine dependence; Z86.16 Personal history of COVID-19; Z91.14 Patient's other noncompliance with medication regimen; Z87.19 Personal history of other diseases of the digestive system; Z79.82 Long term (current) use of aspirin; Z79.899 Other long term (current) drug therapy; Z87.01 Personal history of pneumonia (recurrent); Z87.81 Personal history of (healed) traumatic fracture; Z86.39 Personal history of other endocrine, nutritional and metabolic disease; Z90.89 Acquired absence of other organs
CPT/HCPCS: 36415; 80053; 83735; 83880; 84484; 85025; 85610; 93005; 99284; J3490; 82272; 99222; 99231; 99232; 99238; A9270-GY; P9047; U0002

== ENCOUNTER 2022-06-12 17:38 | Inpatient (IN) | payer MEDICARE, OTHER ==
[2022-06-12] MEDS ORDERED: Albuterol/Ipratropium 3.0-0.5 MG/3 ML Neb Soln NEB PRN (18:12)
[2022-06-12] MEDS ORDERED: Docusate Sodium 100 MG Cap PO PRN (18:12)
[2022-06-12] MEDS ORDERED: Acetaminophen/HYDROcodone 325-5 MG Tab PO PRN (18:12)
[2022-06-12] MEDS ORDERED: Magnesium Hydroxide 400 MG/5 ML Susp 30 ML Cup PO PRN (18:12)
[2022-06-12] MEDS ORDERED: HYDROmorphone 0.5 MG/0.5 ML Syringe IVPUSH PRN (18:12)
[2022-06-12] MEDS ORDERED: Acetaminophen 325 MG Tab PO PRN (18:12)
[2022-06-12] MEDS ORDERED: Bisacodyl 5 MG Tab PO PRN (18:12)
[2022-06-12] MEDS ORDERED: Sodium Chloride 0.9% 10 ML Syringe FLUSH PRN (18:12)
[2022-06-12] MEDS ORDERED: Polyethylene Glycol 3350 Powder 17 GM Packet PO PRN (18:12)
[2022-06-12] MEDS ORDERED: Ondansetron 4 MG/2 ML SDV IVPUSH PRN (18:12)
[2022-06-12] MEDS ORDERED: Furosemide 20 MG/2 ML VIAL IVPUSH ONE (20:27)
[2022-06-12] MEDS ORDERED: Nicotine 21 MG/24 Hr Patch TRDERM PRN (20:30)
[2022-06-12] MEDS ORDERED: Potassium Chloride 10 MEQ Tab.ER PO ONE (20:47)
[2022-06-12] MEDS ORDERED: Magnesium Sulfate/Water 2 GM in Premix Bag 1 BAG IV ONE (20:47)
[2022-06-12] MEDS ORDERED: Furosemide 40 MG Tab PO SCH (21:00)
[2022-06-12] MEDS ORDERED: Metoprolol Succinate 50 MG Tab.ER PO SCH (21:00)
[2022-06-12] MEDS ORDERED: Furosemide 40 MG/4 ML VIAL IVPUSH ONE (21:16)
[2022-06-12] MEDS ORDERED: Albumin Human 50 GM in Premix Bag 1 BAG IV ONE (21:19)
[2022-06-12] MEDS ORDERED: Metoprolol Tartrate 5 MG/5 ML SDV IVPUSH PRN (21:21)
[2022-06-12] MEDS ORDERED: Sodium Chloride 0.9% 500 ML IV SCH (21:30)
[2022-06-12] MEDS: Apixaban 5 MG Tab PO SCH (22:15)
[2022-06-12] MEDS: Sodium Chloride 0.9% 10 ML Syringe FLUSH SCH (22:16)
[2022-06-13 06:58] LABS: ANION GAP 20.2 mEq/L (7-13)
[2022-06-13 07:20] LABS: AMPHETAMINES,URINE NEGATIVE (NEGATIVE); BARBITURATES,URINE NEGATIVE (NEGATIVE); BENZODIAZEPINE,URINE NEGATIVE (NEGATIVE); MDMA (ECSTASY), URINE NEGATIVE (NEGATIVE); METHADONE,URINE NEGATIVE (NEGATIVE); METHAMPHETAMINES,URINE NEGATIVE (NEGATIVE); OPIATES,URINE NEGATIVE (NEGATIVE); OXYCODONE,URINE NEGATIVE (NEGATIVE); PHENCYCLIDINE,URINE NEGATIVE (NEGATIVE); TCA,URINE NEGATIVE (NEGATIVE)
[2022-06-13] MEDS ORDERED: Metoprolol Succinate 50 MG Tab.ER PO SCH (09:00)
[2022-06-13] MEDS: Apixaban 5 MG Tab PO SCH ×2 (09:01→20:57)
[2022-06-13] MEDS: Furosemide 40 MG Tab PO SCH ×2 (09:01→14:29)
[2022-06-13] MEDS: Aspirin 81 MG Tab.Chew PO SCH (09:02)
[2022-06-13] MEDS: Sodium Chloride 0.9% 10 ML Syringe FLUSH SCH ×2 (09:02→20:59)
[2022-06-13] MEDS: Metolazone 2.5 MG Tab PO SCH ×2 (10:23→13:45)
[2022-06-13] MEDS ORDERED: Calcium Carbonate 500 MG Tab.Chew PO PRN (11:29)
[2022-06-13] MEDS: Metoprolol Succinate 50 MG Tab.ER PO SCH (20:58)
[2022-06-14] MEDS: Midodrine 2.5 MG Tab PO PRN ×2 (00:05→08:28)
[2022-06-14 07:42] LABS: ANION GAP 12.6 mEq/L (7-13)
[2022-06-14] MEDS: Aspirin 81 MG Tab.Chew PO SCH (08:10)
[2022-06-14] MEDS: Apixaban 5 MG Tab PO SCH ×2 (08:10→20:09)
[2022-06-14] MEDS: Sodium Chloride 0.9% 10 ML Syringe FLUSH SCH ×2 (08:15→20:20)
[2022-06-14] MEDS ORDERED: Metoprolol Succinate 50 MG Tab.ER PO SCH (09:00)
[2022-06-14] MEDS: Metoprolol Succinate 50 MG Tab.ER PO SCH (09:32)
[2022-06-14] MEDS ORDERED: Acetaminophen 325 MG Tab PO PRN (09:53)
[2022-06-14] MEDS ORDERED: Ondansetron 4 MG/2 ML SDV IVPUSH PRN (10:20)
[2022-06-14] MEDS: Furosemide 40 MG Tab PO SCH ×2 (10:52→15:29)
[2022-06-14] MEDS ORDERED: Potassium Chloride 10 MEQ Tab.ER PO ONE (11:30)
[2022-06-14] MEDS: Potassium Chloride 10 MEQ Tab.ER PO SCH (17:26)
[2022-06-14] MEDS: Midodrine 2.5 MG Tab PO SCH (20:08)
[2022-06-15 07:13] LABS: ANION GAP 16.5 mEq/L (7-13)
[2022-06-15] MEDS: Potassium Chloride 10 MEQ Tab.ER PO SCH ×2 (09:00→18:17)
[2022-06-15] MEDS: Metolazone 2.5 MG Tab PO SCH (09:00)
[2022-06-15] MEDS: Apixaban 5 MG Tab PO SCH ×2 (09:01→20:55)
[2022-06-15] MEDS: Sodium Chloride 0.9% 10 ML Syringe FLUSH SCH ×2 (09:02→20:56)
[2022-06-15] MEDS: Aspirin 81 MG Tab.Chew PO SCH (09:02)
[2022-06-15] MEDS: Furosemide 40 MG Tab PO SCH ×2 (09:02→14:38)
[2022-06-15] MEDS ORDERED: Amiodarone 200 MG Tab PO ONE (09:18)
[2022-06-15] MEDS ORDERED: Cyclobenzaprine 10 MG Tab PO PRN (09:23)
[2022-06-15] MEDS: Midodrine 2.5 MG Tab PO SCH ×2 (09:52→20:55)
[2022-06-15] MEDS: Amiodarone 200 MG Tab PO SCH (20:55)
[2022-06-16 07:12] LABS: ANION GAP 11.2 mEq/L (7-13)
[2022-06-16] MEDS: Midodrine 2.5 MG Tab PO SCH (08:10)
[2022-06-16] MEDS: Apixaban 5 MG Tab PO SCH (08:11)
[2022-06-16] MEDS: Furosemide 40 MG Tab PO SCH (08:11)
[2022-06-16] MEDS: Amiodarone 200 MG Tab PO SCH (08:11)
[2022-06-16] MEDS: Potassium Chloride 10 MEQ Tab.ER PO SCH (08:12)
[2022-06-16] MEDS: Aspirin 81 MG Tab.Chew PO SCH (08:12)
[2022-06-16] MEDS: Sodium Chloride 0.9% 10 ML Syringe FLUSH SCH (08:15)
== END 2022-06-16 12:50 | disposition home or self-care (01) | DRG 291 ==
LOC: OBSVTOIN 18:00 → DL.MS 18:00
PROVIDERS: ADMIT Internal Medicine; ATTEND Internal Medicine
DX: I13.0 Hypertensive heart and chronic kidney disease with heart failure and stage 1 through stage 4 chronic kidney disease, or unspecified chronic kidney disease (principal); I50.23 Acute on chronic systolic (congestive) heart failure; E87.1 Hypo-osmolality and hyponatremia; J90 Pleural effusion, not elsewhere classified; B17.9 Acute viral hepatitis, unspecified; I42.9 Cardiomyopathy, unspecified; J44.9 Chronic obstructive pulmonary disease, unspecified; I25.10 Atherosclerotic heart disease of native coronary artery without angina pectoris; N18.30 Chronic kidney disease, stage 3 unspecified; I67.1 Cerebral aneurysm, nonruptured; K76.0 Fatty (change of) liver, not elsewhere classified; D63.8 Anemia in other chronic diseases classified elsewhere; I48.91 Unspecified atrial fibrillation; D64.9 Anemia, unspecified; E87.8 Other disorders of electrolyte and fluid balance, not elsewhere classified; I95.9 Hypotension, unspecified; F12.10 Cannabis abuse, uncomplicated; M62.830 Muscle spasm of back; R73.9 Hyperglycemia, unspecified; E83.42 Hypomagnesemia; E87.6 Hypokalemia; E88.09 Other disorders of plasma-protein metabolism, not elsewhere classified; Z87.891 Personal history of nicotine dependence; I25.2 Old myocardial infarction; Z86.16 Personal history of COVID-19; Z91.19 Patient's noncompliance with other medical treatment and regimen; Z87.01 Personal history of pneumonia (recurrent); Z86.19 Personal history of other infectious and parasitic diseases; Z90.89 Acquired absence of other organs; I08.3 Combined rheumatic disorders of mitral, aortic and tricuspid valves
CPT/HCPCS: 36415; 76770; 80053; 80074; 80305-QW; 82977; 83735; 83880; 84439; 84443; 85025; 93005; 93306; A9270-GY; J0282; J1940; J3475; J3490; J7040; P9047

== ENCOUNTER 2022-07-01 17:33 | Inpatient (IN) | payer MEDICARE, OTHER ==
[2022-07-01 19:04] LABS: ANION GAP 14.5 mEq/L (7-13); CHLORIDE,CL 97 mmol/L (98-107); SODIUM,NA 130 mmol/L (136-145)
[2022-07-01 19:13] LABS: ESTIMATED GFR 39 mL/min (>=60)
[2022-07-01] MEDS ORDERED: Furosemide 40 MG/4 ML VIAL IVPUSH ONE ×2 (19:18→21:28)
[2022-07-01] MEDS ORDERED: Non-Formulary Medication 1 Each (Albuterol/Ipratropium 4 GM Inhaler) IH PRN (21:00)
[2022-07-01] MEDS ORDERED: Acetaminophen/HYDROcodone 325-5 MG Tab PO PRN (21:11)
[2022-07-01] MEDS ORDERED: Docusate Sodium 100 MG Cap PO PRN (21:11)
[2022-07-01] MEDS ORDERED: Acetaminophen 325 MG Tab PO PRN (21:11)
[2022-07-01] MEDS ORDERED: Sodium Chloride 0.9% 10 ML Syringe FLUSH PRN (21:11)
[2022-07-01] MEDS ORDERED: Potassium Chloride 10 MEQ Tab.ER PO ONE (21:52)
[2022-07-02] MEDS ORDERED: Potassium Chloride 10 MEQ Tab.ER PO ONE (00:15)
[2022-07-02] MEDS ORDERED: Albuterol/Ipratropium 3.0-0.5 MG/3 ML Neb Soln NEB PRN (00:29)
[2022-07-02 06:57] LABS: ANION GAP 17.1 mEq/L (7-13)
[2022-07-02] MEDS ORDERED: Furosemide 40 MG/4 ML VIAL IV ONE (07:58)
[2022-07-02] MEDS: Midodrine 2.5 MG Tab PO SCH ×2 (08:46→17:14)
[2022-07-02] MEDS: Aspirin 81 MG Tab.Chew PO SCH (08:46)
[2022-07-02] MEDS: Potassium Chloride 10 MEQ Tab.ER PO SCH ×2 (08:46→17:13)
[2022-07-02] MEDS: Furosemide 80 MG Tab PO SCH ×2 (08:46→14:05)
[2022-07-02] MEDS: guaiFENesin/Dextromethorphan 100-10 MG/5 ML Soln 5 ML Cup PO PRN (08:46)
[2022-07-02] MEDS: Losartan 25 MG Tab PO SCH (08:46)
[2022-07-02] MEDS: Apixaban 5 MG Tab PO SCH ×2 (08:47→22:12)
[2022-07-02] MEDS: Amiodarone 200 MG Tab PO SCH ×2 (08:47→22:13)
[2022-07-03] MEDS: guaiFENesin/Dextromethorphan 100-10 MG/5 ML Soln 5 ML Cup PO PRN (04:14)
[2022-07-03 07:11] LABS: ANION GAP 12.2 mEq/L (7-13)
[2022-07-03] MEDS: Midodrine 2.5 MG Tab PO SCH ×2 (08:18→17:12)
[2022-07-03] MEDS: Apixaban 5 MG Tab PO SCH ×2 (08:18→21:35)
[2022-07-03] MEDS: Amiodarone 200 MG Tab PO SCH ×2 (08:18→21:35)
[2022-07-03] MEDS: Losartan 25 MG Tab PO SCH (08:22)
[2022-07-03] MEDS: Potassium Chloride 10 MEQ Tab.ER PO SCH ×2 (08:23→17:13)
[2022-07-03] MEDS: Furosemide 80 MG Tab PO SCH ×2 (08:23→13:45)
[2022-07-03] MEDS: Aspirin 81 MG Tab.Chew PO SCH (08:23)
[2022-07-03] MEDS ORDERED: Iron Sucrose Complex 500 MG in Sodium Chloride 0.9% 250 ML IV ONE (10:15)
[2022-07-03] MEDS ORDERED: Potassium Chloride 10 MEQ Tab.ER PO ONE (11:45)
[2022-07-04 07:12] LABS: ANION GAP 12.5 mEq/L (7-13)
[2022-07-04] MEDS ORDERED: Furosemide 40 MG/4 ML VIAL IVPUSH ONE (08:13)
[2022-07-04] MEDS: Apixaban 5 MG Tab PO SCH (08:54)
[2022-07-04] MEDS: Losartan 25 MG Tab PO SCH (08:55)
[2022-07-04] MEDS: Aspirin 81 MG Tab.Chew PO SCH (08:55)
[2022-07-04] MEDS: Amiodarone 200 MG Tab PO SCH (08:55)
[2022-07-04] MEDS: Potassium Chloride 10 MEQ Tab.ER PO SCH (08:56)
[2022-07-04] MEDS: Midodrine 2.5 MG Tab PO SCH (08:56)
[2022-07-04] MEDS: Furosemide 80 MG Tab PO SCH (10:15)
== END 2022-07-04 13:00 | disposition home or self-care (01) | DRG 291 ==
LOC: DL.ED 17:33 → DL.MS 20:47
PROVIDERS: ADMIT Internal Medicine; ATTEND Internal Medicine
PROC: 30233N1 Transfusion of Nonautologous Red Blood Cells into Peripheral Vein, Percutaneous Approach (ICD-10-PCS; principal; 2022-07-02)
DX: I50.9 Heart failure, unspecified (principal); I13.0 Hypertensive heart and chronic kidney disease with heart failure and stage 1 through stage 4 chronic kidney disease, or unspecified chronic kidney disease; I50.23 Acute on chronic systolic (congestive) heart failure; D64.9 Anemia, unspecified; J90 Pleural effusion, not elsewhere classified; E87.1 Hypo-osmolality and hyponatremia; J44.9 Chronic obstructive pulmonary disease, unspecified; N18.30 Chronic kidney disease, stage 3 unspecified; Z20.822 Contact with and (suspected) exposure to COVID-19; R77.8 Other specified abnormalities of plasma proteins; E87.6 Hypokalemia; I25.10 Atherosclerotic heart disease of native coronary artery without angina pectoris; I42.9 Cardiomyopathy, unspecified; E87.8 Other disorders of electrolyte and fluid balance, not elsewhere classified; E88.09 Other disorders of plasma-protein metabolism, not elsewhere classified; K43.9 Ventral hernia without obstruction or gangrene; E61.1 Iron deficiency; R73.9 Hyperglycemia, unspecified; D63.1 Anemia in chronic kidney disease; I48.91 Unspecified atrial fibrillation; M19.90 Unspecified osteoarthritis, unspecified site; Z87.891 Personal history of nicotine dependence; I25.2 Old myocardial infarction; Z86.16 Personal history of COVID-19; Z91.19 Patient's noncompliance with other medical treatment and regimen; Z79.82 Long term (current) use of aspirin; Z79.01 Long term (current) use of anticoagulants; Z79.899 Other long term (current) drug therapy; Z87.01 Personal history of pneumonia (recurrent); Z86.19 Personal history of other infectious and parasitic diseases; Z90.89 Acquired absence of other organs
CPT/HCPCS: 36415; 71045; 80053; 81001; 82272; 83540; 83550; 83605; 83880; 84484 ×2; 85025; 87040; 93005; 93010; 99284; J1940; U0002; 36430; 80048; 82607; 83735; 86850; 86900; 86901; 86920; 86922; 96374; 99222; 99232; 99238; 99285-25; A9270-GY; J0881; J1756; J3490; J7050; P9016